=== PATIENT | female | born 2000 | race Caucasian/White ===

== ENCOUNTER 2019-01-31 19:56 | Emergency (ER) | payer SELFPAY ==
--- NOTE | 2019-01-31 20:08 | NUR.NOTE ---
Nursing Note: pt had lower left molar pulled early today. pt states the gave her no pain medication and she has 10/10 pain. pt has taken like the maximum i think of ibuprofen and Tylenol
[2019-01-31 20:10] VITALS: BP 131/74; PULSE 86; RESP 16; TEMP 36.6; O2SAT 97
--- NOTE | 2019-01-31 20:32 | ED.GENADUL_ITS ---
Discharge Plan Disposition Patient Disposition: HOME Discharge Details Chief Complaint: DentalOral Clinical Impression: Pain, dental Primary Care Provider: Shayan Kay ED Provider: Mario Caballero Discharge Instructions Instructions: Toothache (ED) Additional Instructions: Your dental nerve block should last anywhere from 8 to 10 hours. Continue with taking Tylenol 1000 mg and ibuprofen 600 mg every 8 hours for pain. Return should she develop fever or severe swelling/pain. Follow-up with your dentist as scheduled. Referrals: Shayan Kay MD [Primary Care Provider] - 1 week Medical Decision Making This is a nontoxic-appearing 19-year-old female status post dental extraction. No evidence of infection or worrisome features on exam. Right superior alveolar block performed with good success. Patient tolerated procedure well without complications. Discussed continuation of ibuprofen and Tylenol. Return precautions provided. HPI General Date/Time Provider Initiated Documentation: 01/31/19 20:32 . HPI Narrative: Patient is a 19-year-old female with recent extraction of her left molar earlier today presenting with pain from the extraction site. She denies any worsening swelling or any fevers. She has been taking Tylenol and ibuprofen for dental surgeon's instructions. Related Data Allergies Allergy/AdvReac Type Severity Reaction Status Date / Time codeine Allergy Unverified 01/31/19 20:13 Penicillins Allergy Unverified 01/31/19 20:12 General Stated Complaint: DentalOral CHANTE: 4 Review of Systems Review of Systems All systems reviewed & are unremarkable except as noted in HPI and below PFSH Social History Smoking/Tobacco Use Status: Never Alcohol Intake: never Drug use: Never Substance use type: does not use Do you feel safe at home: Yes Do you feel safe in your relationship?: Yes Exam Const General: cooperative, healthy appearing, comfortable and no acute distress Orientation: alert, awake and oriented x3 HENIL Throat image: 1. 2. Other: Status post extraction of premolar with good gingival appearance. No swelling. No evidence of abscess or fluctuation Course Vital Signs Temperature 36.6 C 01/31/19 20:10 Pulse 86 01/31/19 20:10 Respiratory Rate 16 01/31/19 20:10 Blood Pressure 131/74 01/31/19 20:10 Pulse Oximetry 97 01/31/19 20:10 Temperature 36.6 C 01/31/19 20:10 Temperature Source Skin 01/31/19 20:10 Pulse 86 01/31/19 20:10 Respiratory Rate 16 01/31/19 20:10 Respiratory Effort 01/31/19 20:13 Blood Pressure 131/74 01/31/19 20:10 Blood Pressure Position Sitting 01/31/19 20:10 Pulse Oximetry 97 01/31/19 20:10 Oxygen Delivery Method Room Air 01/31/19 20:10 Oxygen Flow Rate 0 01/31/19 20:10 Pain Level 01/31/19 20:10 Procedures Nerve Block Nerve Block 1: Time out performed: No Local Anesthetic: Bupivicaine 0.5% and with Epi Side: right Intraoral Nerve Block: superior alveolar Procedure Successful: Yes Patient Tolerated Procedure: well Complications: none
[2019-01-31 21:01] VITALS: BP 131/74; PULSE 86; RESP 16; TEMP 36.6; O2SAT 97
== END 2019-01-31 21:00 | disposition home or self-care (01) ==
LOC: ER 21:03
PROVIDERS: Emergency Provider Physician Assistant; PCP Internal Medicine
DX: K08.89 Other specified disorders of teeth and supporting structures (principal); G89.18 Other acute postprocedural pain
CPT/HCPCS: 64402

== ENCOUNTER 2019-07-29 17:53 | Emergency (ER) | payer SELFPAY ==
[2019-07-29] VITALS (7 sets, daily range): BP systolic 106–129; BP diastolic 58–88; PULSE 89–107; RESP 11–22; TEMP 37.1; O2SAT 96–100
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
[2019-07-29 18:55] LABS: Abs Immature Grans 0.02 k/cumm (0.0-0.09); Absolute Basophil Count 0.05 k/cumm (0.0-0.2); Basophils % 0.4; Eosinophils % 1.5; HCT 42.5 % (36.0-46.0); HGB 15.1 g/dL (12.0-15.5); Immature Grans % 0.1 %; Lymphocytes % 24.7; Mean Corp. HGB Concentration 35.5 g/dL (32.0-36.0); Mean Corpuscular Hemoglobin 31.3 pg (27.0-33.0); Mean Corpuscular Volume 88.2 fL (80-95); Mean Platelet Volume 8.8 fL (8.0-11.0); Monocytes % 7.5; Neutrophils % 65.8; Platelet Count 407 x1000/uL (130-400); RBC 4.82 m/cumm (4.00-5.20); RBC Distribution Width 12.7 % (11.7-14.6); White Blood Cell Count 13.38 k/cumm (4.4-10.8)
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
[2019-07-29] MEDS: Normal Saline Flush 10 ML SYR IVP (19:04)
[2019-07-29] MEDS: Normal Saline 1,000 ML 1000 ML IV (19:04)
[2019-07-29 19:07] LABS: Lipase 50 U/L (73-393)
[2019-07-29 19:13] LABS: PTT Activated 22.1 sec (21.0-31.4); Prothrombin Time 9.9 sec (9.3-11.0)
[2019-07-29 19:18] LABS: ETHANOL BLOOD < 3.0 mg/dL (<3)
[2019-07-29 19:20] LABS: ALT 18 U/L (14-59); AST 19 U/L (15-37); Albumin 4.4 g/dL (3.4-5.0); Alkaline Phosphatase 72 U/L (46-116); Anion Gap 11.4 mmol/L (3-11); BUN 13 mg/dL (7-18); Bilirubin, Total 0.2 mg/dL (0.2-1.0); CO2 26.6 mmol/L (21.0-32.0); CREATININE 0.73 mg/dL (0.55-1.02); Calcium 8.9 mg/dL (8.5-10.1); Chloride 104 mmol/L (98-107); Glucose 106 mg/dL (74-106); Potassium 4.3 mmol/L (3.5-5.1); Sodium 142 mmol/L (136-145); Total Protein 7.8 g/dL (6.4-8.2)
[2019-07-29 19:33] LABS: Bilirubin Negative (Negative); Blood Negative (Negative); Clarity Clear (Clear); Glucose Negative (Negative); Ketones Negative (Negative); Leukocyte Esterase Negative (Negative); Nitrite Negative (Negative); Specific Gravity 1.025 (1.005-1.025); Urobilinogen 0.2 EU/dL (Up TO 0.2); pH 6.5 (5-8)
[2019-07-29 19:45] LABS: *AMPHETAMINES SCREEN URINE Negative (Negative); *BARBITURATES SCREEN URINE Negative (Negative); *BENZODIAZEPINES SCREEN URINE Negative (Negative); Cannabinoids THC Negative (Negative); Cocaine Screen,Urine Negative (Negative); METHADONE URINE SCREEN Negative (Negative); OPIATES URINE SCREEN Negative (Negative)
[2019-07-29 19:49] LABS: Tricyclic Antidepressants Negative (Negative)
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
[2019-07-29] MEDS: Omnipaque 350 MG/ML 100 ML BTL IJ (20:13)
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
== END 2019-07-29 20:55 | disposition home or self-care (01) ==
PROVIDERS: Emergency Provider Physician Assistant; PCP Internal Medicine
DX: S06.9X1A Unspecified intracranial injury with loss of consciousness of 30 minutes or less, initial encounter (principal); R07.81 Pleurodynia; S80.812A Abrasion, left lower leg, initial encounter; S00.81XA Abrasion of other part of head, initial encounter; R51 Headache; V87.8XXA Person injured in other specified noncollision transport accidents involving motor vehicle (traffic), initial encounter
CPT/HCPCS: 36415; 74177; 80053; 80307; 81025; 83690; 96360; 96361; 99285; 70450; 71260; 72125; 73590; 80320; 81003; 85025; 85610; 85730; J3490

== ENCOUNTER 2020-12-22 22:28 | Emergency (ER) | payer SELFPAY ==
[2020-12-22 22:35] VITALS: BP 138/70; PULSE 97; RESP 17; TEMP 36.9; O2SAT 98
[2020-12-22 23:00] LABS: Bilirubin Negative (Negative); Blood Negative (Negative); Clarity Clear (Clear); Glucose Negative (Negative); Ketones Negative (Negative); Leukocyte Esterase Negative (Negative); Nitrite Negative (Negative); Urobilinogen 0.2 EU/dL (Up TO 0.2); pH 7.5 (5-8)
[2020-12-22] MEDS: Normal Saline 1,000 ML 1000 ML IV (23:05)
[2020-12-22] MEDS: ACETAMINOPHEN 1,000 MG/100 ML BTL 400 MG IVPB (23:08)
--- NOTE | 2020-12-22 23:09 | W.ED.GENAD ---
Discharge Plan Disposition Patient Disposition: [facility] ([facility]) Condition: Serious Discharge Details Clinical Impression: Abdominal pain affecting Primary Care Provider: Shayan Kay ED Provider: Humphrey Berumen Home Meds and New Rx's Prescriptions: No Action No Known Home Meds RF: 0 Discharge Instructions Additional Instructions: Please go directly to the [facility] emergency department. You will be seen and assessed there by the specialist and imaging modalities that we discussed. As you know it is our recommendation for transfer by ambulance, and so if you note that while you are driving to the facility that your pain or symptoms worsen, please pull to the side of the road, call 911, or drive to the closest the nearest hospital/ED. Here is the address for the [facility] emergency department: [address] [place] [address], [facility], [facility], , [place] [address] Referrals: Nahed Zapien DO [OSTEOPATHIC DOCTOR] - Shayan Kay MD [Primary Care Provider] - Medical Decision Making 20-year-old female with no past medical history aside for recent diagnosis of just 1 week ago, whose lastperiod was 4-1/2 weeks ago, presents today for evaluation of abdominal pain. Patient states that starting yesterday she felt a little uncomfortable in her umbilical region, then today she woke up it was a sharp pain just above the bellybutton. She describes it as constant and unremitting. She has not eaten anything today except for 3 cheetos and her vitamin. She admits to a notably diminished appetite which she states has been atypical for her for the last month. She admits to nausea but denies vomiting. No radiation to her back or scapula. She denies urinary complaints, vaginal discharge, or low-set pelvic pain. She denies any history of previous abdominal problems or surgeries. has otherwise been uncomplicated. was planned. No other complaints at this time. No other modifying factors. Physical exam demonstrates tender abdomen in the epigastric region. Positive heel strike test lateralizing to the umbilicus. Mild pain in the right upper as well as the left lower quadrant. No significant CVA tenderness. Limited portable bedside ultrasound demonstrates a contracted gallbladder, as well as an intrauterine with heartbeat present. Location of pain is slightly atypical. Differential includes pancreatitis, biliary colic, atypical location of appendicitis at this current gestation in , less likely heterotopic . I was unable to visualize the patient's appendix, is unable to identify any clear ectopic however my exam is clearly limited. We will rehydrate, treat with Ofirmev, get basic labs, urinalysis, perform pelvic exam, and reach out for ultrasound availability. Unfortunately it is 11 PM and no staff technologist is available at this time. 1 AM Laboratory work-up shows white count of 11.36, no left shift though. Electrolytes stable aside for his minimally low potassium of 3.2. Renal function good. Beta hCG is 94,900, she is certainly a bit increased compared to what I was expecting. Urinalysis negative. No electron beam photo mask technician is available. I performed a repeat limited bedside ultrasound, and I localize to the area of pain which is midline just above the umbilicus. In this region just below the edge of the liver there is some notably atypical tubular structure, diameter and width is 2 cm x 2 cm, length appears to be about 4 to 6 cm until it is lost in what appears to be bowel. I do not see any peristalsis in that area. There is mild fluid and edema surrounding this pocket. No double ring sign/target sign to suggest intussusception. Palpation and ultrasound pressure directly on that spot is the focus of the patient's pain and tenderness. Doppler flow shows that the area appears to be vascularized in the center, however the peripheral circular structure appears to be avascular or at least without significant blood flow. I do not see any clear evidence of an ectopic in it. Uncertain as to what the exact etiology is. I did contact my OB on-call, Dr. Zapien, she to is uncertain upon review of my personal images. Differential continues to include atypical location of appendicitis, less likely intussusception, less likely heterotopic. Consultants recommendations are for transfer for more definitive imaging. I do feel that this is certainly reasonable. We did reach out to [facility] and I discussed the case with acute care surgery Dr. Maradiaga, unfortunately they have no beds available recommend transfer elsewhere. I did contact the [facility] and discussed the case with the on-call ED physician Dr. Madrid, and she agrees with the need for further definitive imaging, recommend transfer to her facility. Patient's pain is improved from 10 out of 10 to a 6 out of 10. She still has tenderness in the abdomen. Did recommend to the patient and her who is on the phone during the patient's entire stay she be transferred via ambulance. That being said the patient has stated that she does not have insurance, and cost is certainly an issue as well. Patient and are requesting to go by POV. I discussed the risks of this, including worsening decline, and worst-case scenario of potential negative outcome and/or . Patient and family understand recommendation for ambulance transfer, however understanding the requests and respecting their wishes the patient will be transferred by POV. We will continue with a transfer packet, and called the ED to let them know of their imminent arrival. The patient's made it unequivocally clear that he knows exactly where the [facility] ED is, and states clearly that he will bring the patient directly there. I have extensively reviewed the treatment plan and discharge instructions with the patient and their family. I have addressed all patient concerns at this time. The patient and family was made aware of what symptoms to monitor for that would warrant a return to the emergency department. Discussed the plan with the patient and family, they demonstrate verbal understanding and agreement with our assessment and plan at this time. The documentation in this chart was dictated using [employer] dictation software. Please excuse any dictation errors. HPI General Date/Time Provider Initiated Documentation: 12/22/20 22:43. HPI Narrative: 20-year-old female with no past medical history aside for recent diagnosis of just 1 week ago, whose lastperiod was 4-1/2 weeks ago, presents today for evaluation of abdominal pain. Patient states that starting yesterday she felt a little uncomfortable in her umbilical region, then today she woke up it was a sharp pain just above the bellybutton. She describes it as constant and unremitting. She has not eaten anything today except for 3 cheetos and her vitamin. She admits to a notably diminished appetite which she states has been atypical for her for the last month. She admits to nausea but denies vomiting. No radiation to her back or scapula. She denies urinary complaints, vaginal discharge, or low-set pelvic pain. She denies any history of previous abdominal problems or surgeries. has otherwise been uncomplicated. was planned. No other complaints at this time. No other modifying factors. Related Data Home Medications Medication Instructions Recorded Confirmed Unknown [No Known Home Meds] 07/29/19 12/23/20 Allergies Allergy/AdvReac Type Severity Reaction Status Date / Time codeine Allergy Unverified 12/22/20 22:44 Penicillins Allergy Unverified 12/22/20 22:44 General Stated Complaint: Abd Prob CHANTE: 3 Review of Systems All systems reviewed & are unremarkable except as noted in HPI and below PFSH Social History Smoking/Tobacco Use Status: Never Smoking risk assessment performed?: Yes Alcohol Intake: never Drug use: Never Substance use type: does not use Do you feel safe at home: Yes Do you feel safe in your relationship?: Yes Exam Narrative Exam Narrative: 1.Const: Well-nourished, Well-developed, appearing stated age 2.Eyes: PERRL, no conjunctival injection, and symmetrical lids. 3.ENT: Atraumatic external nose and ears. Dry MM. Neck: Symmetric, trachea midline, No thyromegaly. 4.CVS: +S1/S2, No murmurs or gallops. Peripheral pulses 2+ and equal in all extremities. Brisk capillary refill in all extremities. 5.RESP: Unlabored respiratory effort. Clear to auscultation bilaterally. No wheezes rales or rhonchi 6.GI: Soft, mildly bloated, notable supraumbilical tenderness, generalized tenderness throughout, slightly worse also in the left lower quadrant and right upper quadrant. Negative Camarena sign. No focal pain or McBurney's point. Pelvic exam was performed with female nurse Agustina at bedside. Pelvic exam demonstrates minimal white discharge in the vaginal vault, no cervical motion tenderness. Mild pain and tenderness on the left bimanual exam, no significant pain on the right bimanual. 7.MSK: Normocephalic/Atraumatic, Extremities w/o deformity or ttp No cyanosis or clubbing, Normal movement of all extremities 8.Skin: Warm, Dry. No rashes or lesions. 9.Neuro: blender / cook II-XII grossly intact. Sensation grossly intact, no focal neurologic deficits. 10.Psych: (AAO) x3. Appropriate mood and affect Course Vital Signs Vital signs: Vital Signs Temperature 36.9 C 12/22/20 22:35 Pulse 97 H 12/22/20 22:35 Respiratory Rate 17 12/22/20 22:35 Blood Pressure 138/70 12/22/20 22:35 Pulse Oximetry 98 12/22/20 22:35 Temperature 36.9 C 12/22/20 22:35 Temperature Source Temporal Artery Scan 12/22/20 22:35 Pulse 97 H 12/22/20 22:35 Respiratory Rate 17 12/22/20 22:35 Respiratory Effort Non-Labored 12/22/20 22:43 Blood Pressure 138/70 12/22/20 22:35 Blood Pressure Position Sitting 12/22/20 22:35 Pulse Oximetry 98 12/22/20 22:35 Oxygen Delivery Method Room Air 12/22/20 22:35 Oxygen Flow Rate 0 12/22/20 22:35 Pain Level 9 12/22/20 23:08 Lab/Test Results Lab/Test Results: Laboratory Tests Range/Units 12/22/20 22:50 Urine Color (Yellow) Yellow Urine Clarity (Clear) Clear Urine pH (5-8) 7.5 Ur Specific [place] (1.005-1.025) 1.020 Urine Protein (Negative) mg/dL Negative Urine Ketones (Negative) mg/dL Negative Urine Blood (Negative) Negative Urine Nitrite (Negative) Negative Urine Bilirubin (Negative) Negative Urine Urobilinogen (Up TO 0.2) EU/dL 0.2 Ur Leukocyte Esterase (Negative) Negative Urine Glucose (Negative) mg/dL Negative
[2020-12-22 23:20] LABS: Abs Immature Grans 0.02 10^3/uL (0.0-0.06); Absolute Basophil Count 0.09 10^3/uL (0.0-0.2); Absolute Eosinophil Count 0.42 10^3/uL (0.0-0.7); Absolute Lymphocyte Count 4.23 10^3/uL (1.2-3.4); Absolute Monocyte Count 0.93 10^3/uL (0.1-0.8); Absolute Neutrophil Count 5.67 10^3/uL (1.2-6.7); Basophils % 0.8; Eosinophils % 3.7; HCT 41.2 % (36.0-46.0); HGB 14.3 g/dL (11.2-15.7); Immature Grans % 0.2; Lactate 1.2 mmol/L (0.6-1.4); Lymphocytes % 37.2; MCH 30.3 pg (27.0-33.0); MCHC 34.7 % (32.0-36.0); MCV 87.3 fL (80-95); Monocytes % 8.2; Neutrophils % 49.9; Nucleated RBC 0 %; Platelet Count 379 10^3/uL (130-400); RBC 4.72 10^6/uL (3.93-5.22); RDW 12.2 % (11.7-14.6); RDW-SD 39.4 fL; WBC 11.36 10^3/uL (4.4-10.8)
[2020-12-22 23:37] LABS: ALT 42 U/L (14-59); AST 19 U/L (15-37); Albumin 3.9 g/dL (3.4-5.0); Alkaline Phosphatase 67 U/L (46-116); Anion Gap 11.3 mmol/L (3-11); BUN 6 mg/dL (7-18); Bilirubin, Total 0.2 mg/dL (0.2-1.0); CO2 24.7 mmol/L (21.0-32.0); CREATININE 0.7 mg/dL (0.55-1.02); Calcium 9.5 mg/dL (8.5-10.1); Chloride 103 mmol/L (98-107); Glucose 99 mg/dL (74-106); Lipase 51 U/L (73-393); Potassium 3.2 mmol/L (3.5-5.1); Sodium 139 mmol/L (136-145)
[2020-12-23 01:42] VITALS: BP 102/60; PULSE 84; RESP 20; O2SAT 100
[2020-12-23 02:49] LABS: COVID-19 PCR Negative (Negative)
== END 2020-12-23 01:55 | disposition short-term general hospital (02) ==
PROVIDERS: Emergency Provider Student in an Organized Health Care Education/Training Program; PCP Internal Medicine
DX: O26.891 Other specified pregnancy related conditions, first trimester (principal); R10.33 Periumbilical pain
CPT/HCPCS: 36415; 80053; 83690; 87491; 87591; 87635; 96361; 96365; 99285; 81003; 83605; 84702; 85025; 87480; 87510; 87660; J0131

== ENCOUNTER 2021-10-14 21:59 | Emergency (ER) | payer SELFPAY ==
[2021-10-14 22:14] VITALS: BP 109/66; PULSE 80; RESP 18; TEMP 36.1; O2SAT 96
--- NOTE | 2021-10-14 22:15 | DI.CT_ITS ---
Exam(s) CT BRAIN NECK CTA EXAM: CT BRAIN NECK CTA CLINICAL HISTORY: severe c7 midline neck pain after twisting. TECHNIQUE: Imaging Protocol: Axial CT angiography was performed with multi-slice acquisition and mu lti-planar and/or 3D reconstructions. CONTRAST MATERIAL: Intravenous: Visipaque 320 contrast volume:85 mL COMPARISON: CT CT THORACIC LUMBAR SPINE REC from 07/29/[address] HEAD CERVICAL SPINE WO from 07/29/2019 FINDINGS: CT Head W/O and W: Ventricles and Extra axial spaces: Normal in size and morphology for the patient's age. Hemorrhage: None. Cerebral parenchyma: Normal. Midline shift: None. Brainstem/Cerebellum: Normal. Calvarium: Normal. Visualized Paranasal sinuses/Mastoids: Clear. Soft Tissues: Unremarkable. Enhancement: Unremarkable. CTA Neck W: Common Carotid: Right: No dissection, occlusion or significant stenosis. Left: No dissection, occlusion or significant stenosis. External Carotid: Right: No occlusion or significant stenosis. Left: No occlusion or significant stenosis. Internal Carotid: Right: No dissection, occlusion or significant stenosis. Left: No dissection, occlusion or significant stenosis. Vertebral Artery: Right: No dissection, occlusion or significant stenosis. Left: No dissection, occlusion or significant stenosis. Lung Apices: Normal. Bones: There is reversal of the normal cervical lordosis. This may be due to muscle spasm or patient positioning. Soft Tissues: Normal. Thyroid gland: Unremarkable. CTA Brain W: Internal Carotid Arteries: Normal. Anterior Cerebral Arteries: Right: No aneurysm, occlusion or significant stenosis. Left: No aneurysm, occlusion or significant stenosis. Middle Cerebral Arteries: Right: No aneurysm, occlusion or significant stenosis. Left: No aneurysm, occlusion or significant stenosis. Posterior Cerebral Arteries: Right: No aneurysm, occlusion or significant stenosis. Left: No aneurysm, occlusion or significant stenosis. Vertebral Arteries: Right: No aneurysm, occlusion or significant stenosis. Left: No aneurysm, occlusion or significant stenosis. Basilar Artery: No aneurysm, occlusion or significant stenosis. IMPRESSION: 1. No large vessel occlusion or significant stenosis on the CT angiography of the head. 2. No acute intracranial process. 3. No occlusion or significant stenosis on the CT angiography of the neck. RADIATION DOSE DELIVERED: 1,804.39mGy.cm Total DLP DATA REPOSITORY: All CT scans at this facility are submitted to the National Radiology Data Registry (NRDR) Dose Index Registry (DIR) with the [employer] (ACR). RADIATION OPTIMIZATION: All CT scans at this facility use at least one of these dose optimization te chniques: automated exposure control; mA and/or kV adjustment per patient size (includes targeted exa ms where dose is matched to clinical indication); or iterative reconstruction.
[2021-10-14] MEDS: Lidocaine 5% Patch 1 PATCH TP (22:41)
--- NOTE | 2021-10-14 23:59 | ED.GENADUL_ITS ---
Discharge Plan Disposition Patient Disposition: HOME Condition: Good Discharge Details Clinical Impression: Neck pain, Cervical strain Primary Care Provider: Shayan Kay ED Provider: Humphrey Berumen Home Meds and New Rx's Prescriptions: No Action No Known Home Meds Discharge Instructions Instructions: Cervical Strain (ED) Additional Instructions: At this time the CT scan shows no significant abnormality after review by the radiologist. However as we discussed together if you have continued pain in that area or you develop any new symptoms such as weakness, numbness or tingling, dizziness or lightheadedness, it is important to be reassessed. Please discuss potential MRI imaging further with your primary care provider. If your symptoms persist and do not improve this may be indicated. Please use the soft collar as needed for support. Continue to take Tylenol and Motrin as needed for pain. You can take 1000 mg of Tylenol every 6 hours, and 800 mg of Motrin every 6 hours. These are the maximum doses. You can take one of the muscle relaxant Flexeril if needed. Please be aware that this will make you somewhat sleepy. I would not recommend taking these or operating heavy machinery, firearms, swimming, or climbing ladders. If you notice any worsening of your symptoms, or any new symptoms such as vomiting, diarrhea, fever, chills, shortness of breath, chest pain, numbness, weakness, or fainting , please return immediately to the emergency department for reevaluation. Please follow up with your primary care provider as soon as possible for reassessment and reevaluation. As always, it was a pleasure participating in your medical care today. Referrals: Shayan Kay MD [Primary Care Provider] - Discharge Data Discharge Date/Time-TO BE ENTERED AT DEPARTURE: 10/15/21 00:49 Medical Decision Making This is a pleasant 21-year-old female with no significant past medical history who presents tonight for neck pain. Patient states that earlier this morning she was lifting her baby while twisting her neck and felt something change quickly in the back of her neck. Since then she has not been able to side bend her neck to the left, or significantly turning. She has notable focal pain on the spine at C7. She denies any fever or chills. She denies any numbness or tingling. She states that the pain radiates from her left posterior neck all the way up towards her jaw. She denies any tearing or ripping sensation. She denies any numbness tingling or weakness. She denies any significant headache. She denies any chest and back pain. She denies any history of anything like this before. She has been rubbing the neck but this has not been changing any of her symptoms. No other complaints at this time. No other modifying factors. Exam demonstrates focal midline tenderness over the C7/T1 spinous process, there is actually slight swelling there, as well as a small bruise which is very atypical. The spinous process felt between C7 and T1 appears to be slightly off center for C7, and somewhat more midline for T1. Patient demonstrates notable inability to side bend to the left, but she can side bend easily to the right. She can rotate her head to the left and right utilizing the upper component of the vertebra, has pain at greater than 45 degrees primarily to the left, lesser to the right. No significant pain with flexion or extension of the head. Patient does not demonstrate any carotid or vertebral artery bruits. Exam is somewhat atypical and unexpected. Differential includes vertebral dislocation which is less likely, ligamentous etiology, or musculoskeletal sprain. Vascular injury is also of concern especially for the vertebral arteries. In this scenario I do feel that appropriate vascular imaging is currently indicated. We will get a CT/CTA of the head and neck to evaluate for etiology here, add a Lidoderm patch, monitor closely and reassess. Clinically the patient does not demonstrate any meningeal signs. She has no fever or chills. Symptoms appear clinically inconsistent with meningitis at this time. She does not use IV or illicit drugs. She did recently have a baby 2 months ago. Of note the patient's anterior and lateral neck musculature demonstrate no significant evidence of spasm. No clinical evidence of torticollis. [address] scan results have returned, and read demonstrates no acute process. I did contact virtual radiology, and did asked to speak with the radiologist and specifically discussed the area around C7/T1, and the small amount of fatty tissue stranding by the spinous process in that area. Virtual radiology felt very specifically that you are imagining things. There is nothing there. [facility] radi[facility] so no evidence of vascular etiology requiring emergent management. I did go and reassess the patient. She still feels similar, but was very reassured that nothing significant emergent was noted on imaging. She continues to have no fever or chills. She denies trauma to the area. At this time with no evidence of emergent etiology, no clinical signs of significant vascular compromise, neurovascular deficit, I do not see an indication for emergent MRI currently. Patient feels comfortable going home, however I did have a long conversation with her that if her symptoms persist in spite of heating pads, muscle relaxants, and NSAIDs, that she may benefit from further assessment by an MRI. I am concerned that there may certainly be a spinous process ligamental strain, but with no evidence of location or other significant abnormality I see no indication at this time for transfer for emergent MRI. Patient stable for discharge. Will recommend close follow-up with her primary care provider Dr. Kay for reassessment and further evaluation to determine potential need for further imaging if symptoms persist. Discussed red flags for which to return. FINDINGS: ANTERIOR CIRCULATION: Right internal carotid artery: Unremarkable. Intracranial segment is patent with no significant stenosis. No aneurysm. Right middle cerebral artery: Unremarkable. No occlusion or significant stenosis. No aneurysm. Right anterior cerebral artery: Unremarkable. No occlusion or significant stenosis. No aneurysm. Left internal carotid artery: Unremarkable. Intracranial segment is patent with no significant stenosis. No aneurysm. Left middle cerebral artery: Unremarkable. No occlusion or significant stenosis. No aneurysm. Left anterior cerebral artery: Unremarkable. No occlusion or significant stenosis. No aneurysm. POSTERIOR CIRCULATION: Right vertebral artery: Unremarkable. No occlusion or significant stenosis. No aneurysm. Left vertebral artery: Unremarkable. No occlusion or significant stenosis. No aneurysm. Basilar artery: Unremarkable. No occlusion or significant stenosis. No aneurysm. Right posterior cerebral artery: Unremarkable. No occlusion or significant stenosis. No aneurysm. Left posterior cerebral artery: Unremarkable. No occlusion or significant stenosis. No aneurysm. Brain: No intracranial mass, acute infarct or recent hemorrhage detected. Cerebral ventricles: No midline shift or hydrocephalus. Bones/joints: No acute fracture. Mastoid air cells: Grossly clear bilaterally. Soft tissues: Unremarkable. Paranasal sinuses: Grossly clear throughout. IMPRESSION: No large vessel stenosis or occlusion detected involving the major branches of the anterior or posterior intracranial circulation. Right common carotid artery: No stenosis. No dissection or occlusion. Right internal carotid artery: No stenosis of the extracranial segment. No dissection or occlusion. Right external carotid artery: No occlusion or stenosis of the origin. Left common carotid artery: No stenosis. No dissection or occlusion. Left internal carotid artery: No stenosis of the extracranial segment. No dissection or occlusion. Left external carotid artery: No occlusion or stenosis of the origin. Right vertebral artery: No stenosis. No dissection or occlusion. Left vertebral artery: No stenosis. No dissection or occlusion. Soft tissues: Normal. No significant soft tissue swelling. Bones/joints: No acute fracture. IMPRESSION: No evidence of 50% or greater stenosis involving the cervical segments of the right or left internal carotid arteries by NASCET criteria. REFERENCES: NASCET CRITERIA. The degree of internal carotid artery stenosis is based on NASCET criteria. Normal is no stenosis. Mild is less than 50% stenosis. Moderate is 50-69% stenosis. Severe is 70% to 99% stenosis. Total occlusion is no detectable patent lumen. Thank you for allowing us to participate in the care of your patient. Dictated and Authenticated by: Antony French MD 10/15/2021 12:06 AM Eastern Time ([place] & [place]) Addendum created by Antony French MD on 10/15/2021 12:29 AM Eastern Time ([place] & [place]): THIS REPORT CONTAINS FINDINGS THAT MAY BE CRITICAL TO PATIENT CARE. The findings were verbally communicated via telephone conference with HUMPHREY BERUMEN at 12:29 AM EDT on 10/15/2021. The findings were acknowledged and understood. HPI General Date/Time Provider Initiated Documentation: 10/14/21 22:20 . HPI Narrative: This is a pleasant 21-year-old female with no significant past medical history who presents tonight for neck pain. Patient states that earlier this morning she was lifting her baby while twisting her neck and felt something change quickly in the back of her neck. Since then she has not been able to side bend her neck to the left, or significantly turning. She has notable focal pain on the spine at C7. She denies any fever or chills. She denies any numbness or tingling. She states that the pain radiates from her left posterior neck all the way up towards her jaw. She denies any tearing or ripping sensation. She denies any numbness tingling or weakness. She denies any significant headache. She denies any chest and back pain. She denies any history of anything like this before. She has been rubbing the neck but this has not been changing any of her symptoms. No other complaints at this time. No other modifying factors. Related Data Home Medications Medication Instructions Recorded Confirmed Unknown [No Known Home Meds] 07/29/19 12/23/20 Allergies Allergy/AdvReac Type Severity Reaction Status Date / Time codeine Allergy Unverified 12/22/20 22:44 Penicillins Allergy Unverified 12/22/20 22:44 General Stated Complaint: Nk/Back Pain CHANTE: 4 Review of Systems All systems reviewed & are unremarkable except as noted in HPI and below PFSH All Active Problems (Updated 10/15/21 @ 00:44 by Humphrey Berumen DO) Abdominal pain affecting (Acute) Neck pain (Acute) Cervical strain (Acute) Social History Smoking/Tobacco Use Status: Never Smoking risk assessment performed?: Yes Alcohol Intake: never Drug use: Never Substance use type: does not use Do you feel safe at home: Yes Do you feel safe in your relationship?: Yes Exam Narrative Exam Narrative: 1.Const: Well-nourished, Well-developed, appearing stated age 2.Eyes: PERRL, no conjunctival injection, and symmetrical lids. 3.ENT: Atraumatic external nose and ears. Moist MM. Neck: Symmetric, trachea midline, No thyromegaly. 4.CVS: +S1/S2, No murmurs or gallops. Peripheral pulses 2+ and equal in all extremities. Brisk capillary refill in all extremities. 5.RESP: Unlabored respiratory effort. Clear to auscultation bilaterally. No wheezes rales or rhonchi 6.GI: Soft, Nontender/Nondistended, No hepatosplenomegaly. No guarding or rebound. 7.MSK: Normocephalic/Atraumatic, Extremities w/o deformity or ttp No cyanosis or clubbing, Normal movement of all extremities No midline tenderness to palpation over the LS spine. Patient does have focal midline tenderness over the C7/T1 spinous process, there is actually slight swelling there, as well as a small bruise which is very atypical. The spinous process felt between C7 and T1 appears to be slightly off center for C7, and somewhat more midline for T1. Patient demonstrates notable inability to side bend to the left, but she can side bend easily to the right. She can rotate her head to the left and right utilizing the upper component of the vertebra, has pain at greater than 45 degrees primarily to the left, lesser to the right. No significant pain with flexion or extension of the head. Patient does not demonstrate any carotid or vertebral artery bruits. Patient has +5 out of 5 strength in the lower extremities in dorsiflexion and plantarflexion, knee flexion and extension, hip flexion and extension. Normal strength for dorsiflexion and plantar flexion of the great toe bilaterally. There is +2 over 2 dorsalis pedis pulses bilaterally. There is normal sensation to the skin with light touch at the foot, knee, and hip. Normal saddle sensation. Good sensation over the deep sural nerve area bilaterally. Rectal exam deferred. Reflexes are +2 over 4 in the patellar reflex bilaterally. +5 out of 5 strength in the medial, ulnar, radial nerve distribution bilaterally in the hands as well as intact light touch sensation to these dermatomes on the hands 8.Skin: Warm, Dry. No rashes or lesions. 9.Neuro: editorial intern II-XII grossly intact. Sensation grossly intact, no focal neurologic deficits. 10.Psych: (AAO) x3. Appropriate mood and affect Course Vital Signs Vital signs: Vital Signs Temperature 36.1 C L 10/14/21 22:14 Pulse 80 10/14/21 22:14 Respiratory Rate 18 10/14/21 22:14 Blood Pressure 109/66 10/14/21 22:14 Pulse Oximetry 96 10/14/21 22:14 Temperature 36.1 C L 10/14/21 22:14 Pulse 80 10/14/21 22:14 Respiratory Rate 18 10/14/21 22:14 Respiratory Effort Non-Labored 10/14/21 22:19 Blood Pressure 109/66 10/14/21 22:14 Blood Pressure Position Supine 10/14/21 22:14 Pulse Oximetry 96 10/14/21 22:14 Oxygen Delivery Method Room Air 10/14/21 22:14 Oxygen Flow Rate 0 10/14/21 22:14 Pain Level 10 10/14/21 22:14
--- NOTE | 2021-10-15 00:07 | DI.VRAD_ITS ---
Addendum created by Antony French MD on 10/15/2021 12:29:23 AM EDT: THIS REPORT CONTAINS FINDINGS THAT MAY BE CRITICAL TO PATIENT CARE. The findings were verbally communicated via telephone conference with ADORE SCHROEDER at 12:29 AM EDT on 10/15/2021. The findings were acknowledged and understood. Initial report created on 10/15/2021 12:06:52 AM EDT: PROCEDURE INFORMATION: Exam: CT Angiography Head With Contrast, Arteriography Exam date and time: 10/14/2021 11:00 PM Age: 21 years old Clinical indication: Other: Severe c7 midline neck pain after twisting TECHNIQUE: Imaging protocol: Computed tomography angiography of the head with contrast. Exam focused on the arteries. 3D rendering (Not supervised by radiologist): MIP and/or 3D reconstructed images were created by the technologist. Contrast material: VISIOPAQUE 320; Contrast volume: 85 ml; Contrast route: INTRAVENOUS (IV); Other contrast: severe c7 midline neck pain after twisting; COMPARISON: CT HEAD CERVICAL SPINE WO 07/29/2019 7:41 PM FINDINGS: ANTERIOR CIRCULATION: Right internal carotid artery: Unremarkable. Intracranial segment is patent with no significant stenosis. No aneurysm. Right middle cerebral artery: Unremarkable. No occlusion or significant stenosis. No aneurysm. Right anterior cerebral artery: Unremarkable. No occlusion or significant stenosis. No aneurysm. Left internal carotid artery: Unremarkable. Intracranial segment is patent with no significant stenosis. No aneurysm. Left middle cerebral artery: Unremarkable. No occlusion or significant stenosis. No aneurysm. Left anterior cerebral artery: Unremarkable. No occlusion or significant stenosis. No aneurysm. POSTERIOR CIRCULATION: Right vertebral artery: Unremarkable. No occlusion or significant stenosis. No aneurysm. Left vertebral artery: Unremarkable. No occlusion or significant stenosis. No aneurysm. Basilar artery: Unremarkable. No occlusion or significant stenosis. No aneurysm. Right posterior cerebral artery: Unremarkable. No occlusion or significant stenosis. No aneurysm. Left posterior cerebral artery: Unremarkable. No occlusion or significant stenosis. No aneurysm. Brain: No intracranial mass, acute infarct or recent hemorrhage detected. Cerebral ventricles: No midline shift or hydrocephalus. Bones/joints: No acute fracture. Mastoid air cells: Grossly clear bilaterally. Soft tissues: Unremarkable. Paranasal sinuses: Grossly clear throughout. IMPRESSION: No large vessel stenosis or occlusion detected involving the major branches of the anterior or posterior intracranial circulation. PROCEDURE INFORMATION: Exam: CT Angiography Neck With Contrast Exam date and time: 10/14/2021 11:00 PM Age: 21 years old Clinical indication: Other: Severe c7 midline neck pain after twisting TECHNIQUE: Imaging protocol: Computed tomography angiography of the neck with contrast. 3D rendering (Not supervised by radiologist): MIP and/or 3D reconstructed images were created by the technologist. Radiation optimization: All CT scans at this facility use at least one of these dose optimization techniques: automated exposure control; mA and/or kV adjustment per patient size (includes targeted exams where dose is matched to clinical indication); or iterative reconstruction. Contrast material: VISIOPAQUE 320; Contrast volume: 85 ml; Contrast route: INTRAVENOUS (IV); Other contrast: severe c7 midline neck pain after twisting; COMPARISON: CT HEAD CERVICAL SPINE WO 07/29/2019 7:41 PM FINDINGS: Right common carotid artery: No stenosis. No dissection or occlusion. Right internal carotid artery: No stenosis of the extracranial segment. No dissection or occlusion. Right external carotid artery: No occlusion or stenosis of the origin. Left common carotid artery: No stenosis. No dissection or occlusion. Left internal carotid artery: No stenosis of the extracranial segment. No dissection or occlusion. Left external carotid artery: No occlusion or stenosis of the origin. Right vertebral artery: No stenosis. No dissection or occlusion. Left vertebral artery: No stenosis. No dissection or occlusion. Soft tissues: Normal. No significant soft tissue swelling. Bones/joints: No acute fracture. IMPRESSION: No evidence of 50% or greater stenosis involving the cervical segments of the right or left internal carotid arteries by NASCET criteria. REFERENCES: NASCET CRITERIA. The degree of internal carotid artery stenosis is based on NASCET criteria. Normal is no stenosis. Mild is less than 50% stenosis. Moderate is 50-69% stenosis. Severe is 70% to 99% stenosis. Total occlusion is no detectable patent lumen. Dictated and Authenticated by: Antony French MD. Ordering:KUMAR Yin MD
[2021-10-15] MEDS: Ibuprofen 800 MG TAB PO (00:54)
[2021-10-15] MEDS: Acetaminophen 500 MG TAB 1000 MG PO (00:54)
[2021-10-15] MEDS: Cyclobenzaprine 10 MG TAB, 3 TABS/BTL PO (00:54)
--- NOTE | 2021-10-15 10:09 | NUR.NOTE ---
Nursing Note: Patient presented this morning stating she needed an MRI and that she could not get in to her PCP for weeks. I spoke with Dr Christian Knight, he reviewed the chart. At his direction, I told the patient that she could be re-evaluated in the ED again, but there was not guarantee that the MRI would be done today. She could wait to get in to her PCP or we could ask our ED Medical Psychotherapist to assist her in trying to get an earlier appt with her PCP than weeks. The patient elected to have the patient care director assist her with a sooner appt. I gave the information to Cat Dawn who will assist the patient. Gosia Grant
--- NOTE | 2021-10-15 10:27 | PDOC.ERCMACT ---
- If Service Date Differs Date of service: 10/15/21 Time of Service: 10:27 Care Management Activity Note Nuria is seen in the ED for neck pain and cervical strain. She presents again in the ED the following morning stating she is unable to get an appointment with her PCP for several weeks. BRADEN is asked by the ED to contact her PCP's office, [facility] ([facility] to assist Nuria in obtaining a follow up appointment as soon as possible. BRADEN speaks with Su at [facility]. Su is outreaching directly to Nuria to offer an appointment this week.
== END 2021-10-15 00:49 | disposition home or self-care (01) ==
PROVIDERS: Emergency Provider Student in an Organized Health Care Education/Training Program; PCP Internal Medicine
DX: S16.1XXA Strain of muscle, fascia and tendon at neck level, initial encounter (principal); M54.2 Cervicalgia; X50.1XXA Overexertion from prolonged static or awkward postures, initial encounter
CPT/HCPCS: 70496; 70498; 99285; 99284

== ENCOUNTER 2022-05-24 11:40 | Emergency (ER) | payer SELFPAY ==
[2022-05-24 11:49] VITALS: BP 113/64; PULSE 114; RESP 16; TEMP 37.8; O2SAT 99
[2022-05-24 12:01] VITALS: BP 110/71; PULSE 111; RESP 16; O2SAT 98
[2022-05-24] MEDS: Normal Saline 1,000 ML 1000 ML IV ×2 (12:30→13:22)
[2022-05-24 12:40] VITALS: TEMP 37.8
[2022-05-24] MEDS: Ketorolac 15 MG/ML VIAL IVP (12:40)
[2022-05-24 13:26] VITALS: TEMP 37.6
[2022-05-24] MEDS: ACETAMINOPHEN 1,000 MG/100 ML BTL 400 MG IVPB (13:26)
[2022-05-24 13:27] VITALS: PULSE 98; TEMP 37.6; O2SAT 95
[2022-05-24 14:08] VITALS: BP 109/70; PULSE 106; RESP 16; TEMP 37.5; O2SAT 99
--- NOTE | 2022-05-24 14:08 | W.ED.GENAD ---
Discharge Plan Disposition Patient Disposition: Home Condition: Improving Discharge Details Clinical Impression: Influenza A Primary Care Provider: Shayan Kay ED Provider: Daniel Maxwell Home Meds and New Rx's Prescriptions: No Action No Known Home Meds Discharge Instructions Instructions: Influenza (ED) Additional Instructions: Continue to stay well-hydrated and get plenty of rest during viral illness. You may continue to take ojlu-wyy-uqihfex acetaminophen or Tylenol as directed. Please be cautious with use of combination medications such as DayQuil/NyQuil or other vzef-dcj-hnxdpyi's as they may contain acetaminophen. Please make sure that you do not take more than 4000 mg of acetaminophen in a 24-hour period. If you develop any new or significant worsening of symptoms please return the emergency department for reassessment. Otherwise follow-up with your primary care provider if not improving in the next week. Stand Alone Forms: Work Release Referrals: Shayan Kay MD [Primary Care Provider] - 1 week (As needed for reassessment) Discharge Data Discharge Date/Time-TO BE ENTERED AT DEPARTURE: 05/24/22 14:17 Medical Decision Making Patient presenting to the emergency department for chief complaint of cold and flulike symptoms. Patient states that he started on Wednesday and has continued to feel ill. Has taken feil-avm-osbdatt medications which somewhat help. Physical exam shows an ill-appearing but nontoxic female patient with unremarkable HEENT, and respiratory exam and only minor tachycardia noted. Patient is febrile but not hypoxic or hypotensive. We will plan on checking for flu and COVID as these are my high suspicion. Pending results we will give patient Toradol and normal saline. Review of results show that patient is flu a positive. Patient remains still slightly tachycardic so we will give additional liter of fluids and still having body aches will give additional acetaminophen. Patient reassessed and had improvement of fever and tachycardia along with body aches. I do feel that patient is stable for discharge. Given that patient has had symptoms greater than 48 hours I do not feel that antiviral therapy will be of benefit to patient so patient will continue with conservative management and monitoring symptoms. Did discuss with patient return and follow-up precautions. After discussion of diagnosis and plan of care patient has no further needs, questions, or concerns and states clear understanding to return to the emergency department for any worsening symptoms. This documentation was generated using Dragon dictation system, please disregard any oddities of phrase or misspellings. Lab Data Lab results reviewed: Yes I reviewed the patient's lab results. HPI General Mode of arrival: ambulatory. Date/Time Provider Initiated Documentation: 05/24/22 11:42. Limitations to Documentation: no limitations. Information obtained by: patient and RN notes reviewed. History of Present Illness 22 year old F presents to the emergency department with the chief complaint of Fever chills cough body aches runny nose, described as moderate, with intensity rated at 8. Quality is described as aching (Generalized body aches), Patient started experiencing this day(s) (3) and it has been constant. No relieving factors improve symptom(s), No exacerbating factors reported . Patient notes no other symptoms.. Patient did receive the following treatments prior to arrival, other (NyQuil yesterday evening) Related Data Home Medications Medication Instructions Recorded Confirmed Unknown [No Known Home Meds] 07/29/19 05/24/22 Allergies Allergy/AdvReac Type Severity Reaction Status Date / Time codeine Allergy Unverified 05/24/22 11:58 Penicillins Allergy Unverified 05/24/22 11:58 General Stated Complaint: RespSymp CHANTE: 4 Review of Systems Constitutional Constitutional: Reports body ache(s), Reports chills, Reports fever(s), Reports headache(s) and Reports malaise Eyes Eyes: Denies eye discharge ENT Ears, Nose, Mouth, and Throat: Reports as per HPI, Denies ear discharge, Denies otalgia, Reports headache(s), Reports nasal congestion, Reports nasal discharge, Denies neck pain, Reports sore throat and Denies throat swelling Cardiovascular Cardiovascular: Denies chest pain and Denies dyspnea Respiratory Respiratory: Reports cough and Denies dyspnea Musculoskeletal Musculoskeletal: Denies joint swelling and Denies neck pain Integumentary/Breasts Skin/Breast: Denies rash Neurologic Neurologic: Reports headache(s) Allergic/Immunologic Allergic/Immunologic: Denies throat swelling PFSH All Active Problems (Updated 05/24/22 @ 14:14 by Daniel Maxwell NP) Abdominal pain affecting (Acute) Influenza A (Acute) Social History Smoking/Tobacco Use Status: Never Smoking risk assessment performed?: Yes Alcohol Intake: never Drug use: Never Substance use type: does not use Do you feel safe at home: Yes Do you feel safe in your relationship?: Yes Exam Const General: cooperative, comfortable, no acute distress and ill appearing acutely Orientation: alert and awake [facility] Head: normal to inspection, normocephalic and atraumatic Ears: hearing grossly normal bilaterally and TM's normal bilaterally General nose exam: external nose normal Face and sinus: no erythema Mouth: oral mucosae normal, no drooling, no muffled voice and no trismus Throat: posterior oropharynx normal Neck Neck: normal visual inspection, full ROM, no lymphadenopathy, no meningeal signs, trachea midline and supple Resp Effort & Inspection: normal respiratory effort, able to speak in complete sentences and cough Quality of cough: dry Auscultation: clear to auscultation bilaterally Cardio Rate: tachycardic Rhythm: regular rhythm Heart Sounds: S1 normal, S2 normal, normal S1 and S2, no click, no gallops, no murmurs and no rubs Skin General skin exam: no rashes or lesions noted and dry skin (warm) Neuro General: patient alert, patient awake, patient oriented x3, gait normal and moves all extremities Cognition: normal cognition Speech: speech normal Course Vital Signs Vital signs: Vital Signs Temperature 37.8 C H 05/24/22 11:49 Pulse 114 H 05/24/22 11:49 Respiratory Rate 16 05/24/22 11:49 Blood Pressure 113/64 05/24/22 11:49 Pulse Oximetry 99 05/24/22 11:49 Temperature 37.6 C H 05/24/22 13:27 Temperature Source Skin 05/24/22 13:27 Pulse 98 H 05/24/22 13:27 Respiratory Rate 16 05/24/22 12:01 Respiratory Depth Normal 05/24/22 12:00 Blood Pressure 110/71 05/24/22 12:01 Blood Pressure Position Sitting 05/24/22 11:49 Pulse Oximetry 95 05/24/22 13:27 Oxygen Delivery Method Room Air 05/24/22 13:27 Oxygen Flow Rate 0 05/24/22 13:27 Pain Level 9 05/24/22 13:27 Comment helps with fever but no other symptoms 05/24/22 11:49
== END 2022-05-24 14:17 | disposition home or self-care (01) ==
PROVIDERS: Emergency Provider Nurse Practitioner Family; PCP Internal Medicine
DX: J10.1 Influenza due to other identified influenza virus with other respiratory manifestations (principal); R00.0 Tachycardia, unspecified
CPT/HCPCS: 96361; 96374; 99284; 99283; J0131; J1885

== ENCOUNTER 2022-05-25 21:24 | Emergency (ER) | payer SELFPAY ==
[2022-05-25 21:28] VITALS: BP 129/89; PULSE 100; RESP 16; TEMP 36.8; O2SAT 96
--- NOTE | 2022-05-25 21:43 | W.ED.GENAD ---
Discharge Plan Disposition Patient Disposition: Home Condition: Good Discharge Details Chief Complaint: GenMedical Clinical Impression: Influenza A Primary Care Provider: Shayan Kay ED Provider: Antoinette Torres Home Meds and New Rx's Prescriptions: No Action No Known Home Meds Discharge Instructions Instructions: H1N1 Influenza (ED) Additional Instructions: Please continue to encourage hydration. Tylenol and ibuprofen as needed for discomfort or fevers. Please wash your hands frequently to prevent spread to others. Please try to get some rest. If you develop shortness of breath, difficulty breathing, inability stay hydrated or other new/worsening symptom please seek care urgently once again. Otherwise, please follow-up with primary care for reevaluation in 2 weeks. Referrals: Shayan Kay MD [Primary Care Provider] - Medical Decision Making Patient is a 22-year-old female presenting today with concern for worsening flulike symptoms. She was seen here yesterday diagnosed with influenza. She reports that she has not used any eftv-uep-rnzzoih medications since early this morning. Primary concern is diffuse body aches and fatigue. States that her significant other is not allowing her to rest the way that she feels that she should. States that this is also the reason she has not been taking any analgesics or antipyretics. Has been trying to hydrate. Denies any shortness of breath or chest pain. Has not noted any rash. No GI involvement. On exam, patient appears nontoxic. She does appear anxious. Lungs are clear, normal HEENT exam aside from chronic deformity to right ear. Patient appears well-hydrated. Will give Tylenol and ibuprofen to help with body aches. We discussed supportive care. Primary concern is that she needs to get more rest and does not feel that her significant other is going to allow her to do this. I did offer supportive services including umbrella to get her someplace where she can be safe. She reports that she is in fact safe and has not concern for safety, has of the places that she can go, but states that it is more that they were bickering and not able to rest. We again reiterated supportive care measurements. We discussed when to seek care emergently once again. All of her questions and concerns were addressed and she is in agreement this plan. HPI General Date/Time Provider Initiated Documentation: 05/25/22 21:26. Limitations to Documentation: no limitations. Information obtained by: patient, RN notes reviewed and old records reviewed. History of Present Illness 22 year old F presents to the emergency department with the chief complaint of body aches, flu symptoms, described as severe, with intensity rated at 10. Quality is described as aching (diffuse body aches), Patient started experiencing this day(s) and it has been constant. No relieving factors improve symptom(s), No exacerbating factors reported . Patient notes cough, fever/chills, loss of appetite and malaise; denies chest pain, nausea/vomiting, rash and shortness of breath. Patient did receive the following treatments prior to arrival, none Related Data Home Medications Medication Instructions Recorded Confirmed Unknown [No Known Home Meds] 07/29/19 05/24/22 Allergies Allergy/AdvReac Type Severity Reaction Status Date / Time codeine Allergy Unverified 05/24/22 11:58 Penicillins Allergy Unverified 05/24/22 11:58 General Stated Complaint: GenMedical CHANTE: 4 Review of Systems Constitutional Constitutional: Reports as per HPI and Denies headache(s) ENT Ears, Nose, Mouth, and Throat: Reports as per HPI and Denies headache(s) Cardiovascular Cardiovascular: Reports as per HPI, Denies chest pain and Denies dyspnea Respiratory Respiratory: Reports as per HPI and Denies dyspnea Gastrointestinal Gastrointestinal: Reports as per HPI, Denies abdominal pain, Denies change in bowel habits, Denies nausea and Denies vomiting Integumentary/Breasts Skin/Breast: Reports as per HPI and Denies rash Neurologic Neurologic: Reports as per HPI and Denies headache(s) PFSH All Active Problems (Updated 05/25/22 @ 21:44 by ОЛЬГА Velasquez) Abdominal pain affecting (Acute) Influenza A (Acute) Social History Smoking/Tobacco Use Status: Never Smoking risk assessment performed?: Yes Alcohol Intake: never Drug use: Never Substance use type: does not use Do you feel safe at home: Yes Do you feel safe in your relationship?: Yes Exam Const General: cooperative, healthy appearing, comfortable, no acute distress, well developed, well groomed and anxious Nutritional Appearance: average body habitus and well nourished Orientation: alert and awake [facility] Head: normal to inspection, normocephalic and atraumatic Ears: hearing grossly normal bilaterally, external ears normal and TM's normal bilaterally General nose exam: external nose normal and nares normal Face and sinus: normal facial exam, sinuses nontender and face symmetric Mouth: oral mucosae normal, lip normal, tongue normal, oropharynx normal and moist mucous membranes Teeth and gingiva: dentition normal Throat: posterior oropharynx normal, tonsils normal and uvula midline Eyes General: appearance normal, both eyes and all related structures Neck Neck: normal visual inspection, full ROM, no lymphadenopathy and no meningeal signs Resp Effort & Inspection: normal respiratory effort, able to speak in complete sentences and no respiratory distress Auscultation: clear to auscultation bilaterally, no rales, no rhonchi and no wheezes Cardio Rate: regular rate Rhythm: regular rhythm Heart Sounds: S1 normal and S2 normal Skin General skin exam: no rashes or lesions noted Neuro General: patient alert and patient awake Cognition: normal cognition Speech: speech normal Gait: normal gait Psych Appearance: grossly normal and well kempt Mental Status: mental status grossly normal Speech and Movement: speech and movement normal Course Vital Signs Vital signs: Vital Signs Temperature 36.8 C 05/25/22 21:28 Pulse 100 H 05/25/22 21:28 Respiratory Rate 16 05/25/22 21:28 Blood Pressure 129/89 05/25/22 21:28 Pulse Oximetry 96 05/25/22 21:28 Temperature 36.8 C 05/25/22 21:28 Pulse 100 H 05/25/22 21:28 Respiratory Rate 16 05/25/22 21:28 Respiratory Effort 05/25/22 21:35 Respiratory Depth Normal 05/25/22 21:35 Respiratory Pattern Normal 05/25/22 21:35 Blood Pressure 129/89 05/25/22 21:28 Pulse Oximetry 96 05/25/22 21:28 Oxygen Delivery Method Room Air 05/25/22 21:28 Oxygen Flow Rate 0 05/25/22 21:28 Pain Level 10 05/25/22 21:28
[2022-05-25] MEDS: Acetaminophen 325 MG TAB 650 MG PO (21:45)
[2022-05-25] MEDS: Ibuprofen 600 MG TAB PO (21:45)
== END 2022-05-25 21:49 | disposition home or self-care (01) ==
PROVIDERS: Emergency Provider Physician Assistant; PCP Internal Medicine
DX: J10.1 Influenza due to other identified influenza virus with other respiratory manifestations (principal)
CPT/HCPCS: 99282

== ENCOUNTER 2023-08-10 01:00 | Outpatient (REF) | payer SELFPAY ==
--- NOTE | 2023-08-10 15:15 | PAPFT_PTH ---
PATIENT: Nuria Vazquez LOC: [facility] U#:[id number] AGE/SX: 23/F ROOM: RE08/10/[address]: Isabella Holly : 2000 BED: DIS: 08/10/2023 SPEC #: [id number] RECD: 08/11/23 12:49 STATUS: SAM REQ #: [id number] LESLIE: 08/10/23 15:[address]: Isabella Holly DEPT: [facility] Cytology RECD BY: Justina Alcazar Tissues: 1 - CX/ENDOCX FOR PAP SMEARS Procedures: PAP THIN PREP/UVM Screening Comments: [id number] (CHLAMYDIA/GC)
[2023-08-12 15:02] LABS: Chlamydia Result Negative (Negative); GC Result Negative (Negative)
== END 2023-08-10 01:01 | disposition home or self-care (01) ==
LOC: NCHCN 01:00
PROVIDERS: PCP Nurse Practitioner Family; Visit Provider Nurse Practitioner Family
DX: Z01.419 Encounter for gynecological examination (general) (routine) without abnormal findings (principal)
CPT/HCPCS: 87491; 87591; 88142

== ENCOUNTER 2023-08-29 22:02 | Emergency (ER) | payer SELFPAY ==
[2023-08-29 22:07] VITALS: BP 135/91; PULSE 79; RESP 16; TEMP 37; O2SAT 98
[2023-08-29 22:16] VITALS: BP 135/91; PULSE 79; RESP 16; TEMP 37; O2SAT 98
--- NOTE | 2023-08-29 22:25 | ED.GENADUL_ITS ---
Discharge Plan Disposition Patient Disposition: Home Condition: Stable Discharge Details Chief Complaint: EarProblem Clinical Impression: Otitis externa Primary Care Provider: Isabella Holly ED Provider: Kevin Strauss Home Meds and New Rx's Prescriptions: No Action No Known Home Meds Discharge Instructions Instructions: Otitis Externa (ED) Additional Instructions: Please follow-up with [facility] audiology within the next week. Please return to the emerged part for any worsening symptoms HPI General Date/Time Provider Initiated Documentation: 08/29/23 22:14 . 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 Feels some pressure extending down into side of jaw and neck. Follows closely with audiology at [facility]. No recent submersion in water. Related Data Home Medications Medication Instructions Recorded Confirmed Unknown [No Known Home Meds] 07/29/19 08/29/23 Allergies Allergy/AdvReac Type Severity Reaction Status Date / Time codeine Allergy Nausea Unverified 08/29/23 22:10 Penicillins Allergy Nausea Unverified 08/29/23 22:10 General Stated Complaint: EarProblem CHANTE: 4 Review of Systems Narrative: Review of Systems Constitutional: negative Eyes: negative ENT: Ear pain Cardiovascular: negative Respiratory: negative Gastrointestinal: negative : negative Musculoskeletal: negative Skin: negative Neurologic: negative Psych: negative Exam Narrative Exam Narrative: Physical Examination General: alert, awake, cooperative, resting comfortably, no acute distress HEENT: normocephalic, atraumatic; PERRL, EOM intact, conjunctiva normal; no nasal discharge; moist mucous membranes; left ear: TM clear, no effusion no induration no bulging, patient does have discomfort in external auditory canal with mild induration and erythema, no appreciable external exudate or purulence, no mastoid tenderness; congenital dysgenesis of right ear Neck: supple, trachea midline; full ROM Chest: normal to inspection Respiratory: normal respiratory effort, speaking in full sentences Skin: no lesions, rashes or trauma appreciated Neuro: AAOx3, normal speech, moving all extremities Psych: Appropriate mood and affect Course Vital Signs Vital signs: Vital Signs Temperature 37.0 C 08/29/23 22:07 Pulse 79 08/29/23 22:07 Respiratory Rate 16 08/29/23 22:07 Blood Pressure 135/91 H 08/29/23 22:07 Pulse Oximetry 98 08/29/23 22:07 Temperature 37.0 C 08/29/23 22:16 Temperature Source Skin 08/29/23 22:16 Pulse 79 08/29/23 22:16 Respiratory Rate 16 08/29/23 22:16 Respiratory Effort Normal, Non-Labored 08/29/23 22:10 Blood Pressure 135/91 H 08/29/23 22:16 Blood Pressure Position Sitting 08/29/23 22:16 Pulse Oximetry 98 08/29/23 22:16 Oxygen Delivery Method Room Air 08/29/23 22:16 Oxygen Flow Rate 0 08/29/23 22:07 Pain Level 9 08/29/23 22:16 Medical Decision Making 23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 No respiratory distress. TM clear left without effusion or erythema, external auditory canal on left mildly indurated with erythema no exudate or purulence no evan, negative mastoid tenderness, supple neck, no signs of deep space infection of head or neck; high clinical suspicion for otitis externa. Will start on ofloxacin. Patient follows closely with audiology at [facility]. Quality:SDOH Health Related Social Needs: No Data to Display [facility] All Active Problems (Updated 08/29/23 @ 22:30 by Kevin Strauss MD) Otitis externa (Acute) Abdominal pain affecting (Acute) Medical History Short stature Congenital anomaly of ear Financial insecurity Anxiety and depression Panic disorder Acne vulgaris Hearing loss, left Social History Smoking/Tobacco Use Status: Current every day Tobacco Type: e-cigarettes Smoking risk assessment performed?: Yes Alcohol Intake: current Alcohol Intake frequency: a few times a month Alcohol type: beer and hard liquor Drug use: Never Substance use type: does not use Housing: apartment Do you feel safe at home: Yes Do you feel safe in your relationship?: Yes
== END 2023-08-29 23:00 | disposition home or self-care (01) ==
PROVIDERS: Emergency Provider Emergency Medicine; PCP Nurse Practitioner Family
DX: H60.92 Unspecified otitis externa, left ear (principal); Q17.9 Congenital malformation of ear, unspecified; F17.290 Nicotine dependence, other tobacco product, uncomplicated
CPT/HCPCS: 99283

== ENCOUNTER 2023-09-22 15:52 | Outpatient (REF) | payer SELFPAY ==
[2023-09-22 22:09] LABS: HCT 42.3 % (36.0-46.0); HGB 14.4 g/dL (11.2-15.7); MCH 29.8 pg (27.0-33.0); MCV 88 fL (80-95); MPV 9.8 fL (8.0-11.0); Platelet Count 422 10^3/uL (130-400); RBC 4.83 10^6/uL (3.93-5.22); RDW 13.5 % (11.7-14.6); RDW-SD 43.5 fL; WBC 9.05 10^3/uL (4.4-10.8)
[2023-09-22 22:46] LABS: ALT 22 U/L (14-59); AST 13 U/L (15-37); Albumin 4.4 g/dL (3.4-5.0); Alkaline Phosphatase 95 U/L (46-116); Anion Gap 11.8 mmol/L (3-11); BUN 13 mg/dL (7-18); Bilirubin, Total 0.5 mg/dL (0.2-1.0); CO2 25.2 mmol/L (21.0-32.0); CREATININE 0.8 mg/dL (0.55-1.02); Calcium 9.6 mg/dL (8.5-10.1); Chloride 103 mmol/L (98-107); Estimated GFR 105.45 (mL/min/1.73m2); Ferritin 28 ng/mL (8-252); Glucose 85 mg/dL (74-106); Potassium 3.8 mmol/L (3.5-5.1); Sodium 140 mmol/L (136-145); TSH (W/Ref FT4) 1.11 uIU/mL (0.36-3.74); Total Protein 8.2 g/dL (6.4-8.2)
[2023-09-22 23:08] LABS: Iron 58 ug/dL (50-170); Total Iron Binding Capacity 372 ug/dL (250-450); Transferrin Sat 16 % (15-50)
== END 2023-09-22 15:53 | disposition home or self-care (01) ==
LOC: NCHCN 15:52
PROVIDERS: PCP Nurse Practitioner Family; Visit Provider Nurse Practitioner Family
DX: R00.2 Palpitations (principal)
CPT/HCPCS: 80053; 85027; 82728; 83540; 83550; 84443

== ENCOUNTER 2023-09-23 12:57 | Outpatient (RCR) | payer SELFPAY ==
--- NOTE | 2023-09-23 13:15 | HOLTER_ITS ---
APPROVED REPORT Conclusion This is a 48-hour Holter monitor Rhythm throughout was sinus with an average heart rate of 83. Minimum was 56, maximum 142 There were no ventricular dysrhythmias There were a total of 19 isolated atrial premature beats There was no atrial fibrillation, no high-grade AV block, no pauses greater than 3 seconds No patient symptoms were reported
== END 2023-10-22 23:59 | disposition home or self-care (01) ==
LOC: CARDOPNVT 12:57
PROVIDERS: PCP Nurse Practitioner Family; Visit Provider Internal Medicine Cardiovascular Disease
DX: R00.2 Palpitations (principal); I49.1 Atrial premature depolarization
CPT/HCPCS: 93225; 93226

== ENCOUNTER 2023-10-17 16:31 | Emergency (ER) | payer SELFPAY ==
[2023-10-17 16:33] VITALS: BP 142/74; PULSE 87; RESP 16; TEMP 36.7; O2SAT 99
[2023-10-17 17:35] LABS: COVID-19 PCR Negative (Negative); Influenza A PCR Negative (Negative); Influenza B PCR Negative (Negative); RSV PCR Negative (Negative)
[2023-10-17 17:37] VITALS: RESP 16
[2023-10-17 17:37] LABS: Source Nasopharynx
--- NOTE | 2023-10-17 17:48 | W.ED.GENAD ---
Discharge Plan Disposition Patient Disposition: Home Condition: Improving Discharge Details Chief Complaint: GenMedical Clinical Impression: Viral illness Primary Care Provider: Isabella Holly ED Provider: Kevin Strauss Home Meds and New Rx's Prescriptions: No Action No Known Home Meds Discharge Instructions Instructions: Viral Syndrome (ED) Stand Alone Forms: Work Release HPI General Date/Time Provider Initiated Documentation: 10/17/23 16:58. HPI Narrative: 23-year-old female presents with headache body ache fatigue nausea vomiting cough over the last couple of days, sick contacts at home with similar symptoms. Related Data Home Medications Medication Instructions Recorded Confirmed Unknown [No Known Home Meds] 07/29/19 10/17/23 Allergies Allergy/AdvReac Type Severity Reaction Status Date / Time codeine Allergy Nausea Unverified 10/17/23 17:38 Penicillins Allergy Nausea Unverified 10/17/23 17:38 General Stated Complaint: GenMedical CHANTE: 3 Review of Systems Narrative: Review of Systems Constitutional: Body aches Eyes: negative ENT: negative Cardiovascular: negative Respiratory: Cough Gastrointestinal: negative : negative Musculoskeletal: negative Skin: negative Neurologic: negative Psych: negative Exam Narrative Exam Narrative: Physical Examination General: alert, awake, cooperative, resting comfortably, no acute distress HEENT: normocephalic, atraumatic; PERRL, EOM intact, conjunctiva normal; no nasal discharge; moist mucous membranes, oral and pharyngeal mucosa normal, tolerating secretions Neck: supple, trachea midline; full ROM Chest: normal to inspection Respiratory: normal respiratory effort, speaking in full sentences, clear to auscultation, no wheezing, rales or rhonchi Cardiac: regular rate, regular rhythm, S1S2 intact, no murmurs rubs or gallops GI: abdomen soft, non-tender, non-distended; no palpable mass or hepatosplenomegaly Skin: no lesions, rashes or trauma appreciated Neuro: AAOx3, normal speech, moving all extremities Extremities: No peripheral edema Psych: Appropriate mood and affect Course Vital Signs Vital signs: Vital Signs Temperature 36.7 C 10/17/23 16:33 Pulse 87 10/17/23 16:33 Respiratory Rate 16 10/17/23 16:33 Blood Pressure 142/74 H 10/17/23 16:33 Pulse Oximetry 99 10/17/23 16:33 Temperature 36.7 C 10/17/23 16:33 Pulse 87 10/17/23 16:33 Respiratory Rate 16 10/17/23 17:37 Respiratory Effort Short of Breath 10/17/23 17:37 Respiratory Depth Normal 10/17/23 17:37 Respiratory Pattern Normal 10/17/23 17:37 Blood Pressure 142/74 H 10/17/23 16:33 Blood Pressure Position Sitting 10/17/23 16:33 Pulse Oximetry 99 10/17/23 16:33 Oxygen Delivery Method Room Air 10/17/23 16:33 Oxygen Flow Rate 0 10/17/23 16:33 Lab/Test Results Lab/Test Results: Laboratory Tests Range/Units 10/17/23 16:47 COVID-19 Source Nasopharynx SARS-CoV-2 (PCR) (Negative) Negative Influenza Type A (PCR) (Negative) Negative Influenza Type B (PCR) (Negative) Negative RSV (PCR) (Negative) Negative Medical Decision Making 23-year-old female presents with nausea vomiting diarrhea body aches fatigue fever decreased taste and smell as well as cough over the last couple of days, similar symptoms in sick contacts at home. Afebrile nontoxic well-hydrated. Lungs clear bilaterally no respiratory distress no evidence of dehydration. Neurologically intact interactive normal tone nonfocal. Likely viral respiratory illness consider COVID flu RSV or other viral etiology lower suspicion for bacterial pneumonia encephalitis meningitis or other serious bacterial infection. Trial of dexamethasone anti-inflammatory analgesia and antiemetic. Close reassessment. Patient would like a work note 18: 44 patient feels much better after meds. Quality:SDOH Health Related Social Needs: No Data to Display PFSH All Active Problems (Updated 10/17/23 @ 18:45 by Kevin Strauss MD) Viral illness (Acute) Abdominal pain affecting (Acute) Medical History Short stature Congenital anomaly of ear Financial insecurity Anxiety and depression Panic disorder Acne vulgaris Hearing loss, left Social History Smoking/Tobacco Use Status: Current every day Tobacco Type: e-cigarettes Smoking risk assessment performed?: Yes Alcohol Intake: current Alcohol Intake frequency: a few times a month Alcohol type: beer and hard liquor Drug use: Never Substance use type: does not use Housing: apartment Do you feel safe at home: Yes Do you feel safe in your relationship?: Yes PAWSS Have you Been Recently Intoxicated or Drunk Within the Last 30 days?: No Have you Ever Experienced Previous Episodes of Alcohol Withdrawal?: No Have you ever Experienced Withdrawal Seizures?: No Have you ever Experienced Delirium Tremens(DT)s?: No Have you ever undergone Alcohol Rehabilitation Treatment (i.e, inpt ot outpatient treatment programs)?: No Have you ever Experienced Blackouts?: No Have you ever Combined Alcohol with other Downers within the last 90 days?: No Have you ever Combined Alcohol with any other Substance of Abuse during the last 90 days?: No Positive Blood Alcohol level on Presentation? [PCS.BAL]: No Evidence of Increased Autonomic Activity (i.e. HR>120, tremor, sweating, agitation, nausea)?: No Result: 0
[2023-10-17 17:54] VITALS: TEMP 36.7
[2023-10-17] MEDS: Acetaminophen 500 MG TAB PO (17:54)
[2023-10-17] MEDS: Ondansetron O.D.T. 4 MG TABEF SL (17:55)
[2023-10-17] MEDS: Dexamethasone 10 MG/ML VIAL PO (17:55)
[2023-10-17] MEDS: Albuterol 2.5 MG/3 ML INH SOLN VIAL UPD (17:56)
[2023-10-17 18:41] VITALS: BP 106/61; PULSE 75; O2SAT 99
== END 2023-10-17 18:41 | disposition home or self-care (01) ==
PROVIDERS: Emergency Provider Emergency Medicine; PCP Nurse Practitioner Family
DX: R51.9 Headache, unspecified (principal); R05.1 Acute cough; R06.02 Shortness of breath; R09.81 Nasal congestion; R11.2 Nausea with vomiting, unspecified; R19.7 Diarrhea, unspecified; H92.02 Otalgia, left ear; B34.9 Viral infection, unspecified
CPT/HCPCS: 87637; 94640; 99284; 99283; J1100; J7613

== ENCOUNTER 2023-12-08 15:02 | Emergency (ER) | payer SELFPAY ==
[2023-12-08 15:14] VITALS: BP 98/67; PULSE 92; RESP 18; TEMP 37; O2SAT 100
[2023-12-08 16:32] VITALS: BP 111/61; PULSE 92; TEMP 37; O2SAT 98
--- NOTE | 2023-12-08 18:25 | ED.GENADUL_ITS ---
Discharge Plan Disposition Patient Disposition: Home Condition: Stable Discharge Details Clinical Impression: COVID-19 Primary Care Provider: Isabella Holly ED Provider: Viviana Gill Home Meds and New Rx's Prescriptions: No Action No Known Home Meds Discharge Instructions Instructions: COVID-19 ED Additional Instructions: Please follow-up with your primary care provider. Return to the Emergency Department with any worsening symptoms or any other concerns. Take over the counter medications as needed for body ache and fever relief. Stand Alone Forms: Work Release Discharge Data Discharge Date/Time-TO BE ENTERED AT DEPARTURE: 12/08/23 19:50 HPI General Date/Time Provider Initiated Documentation: 12/08/23 15:29 . HPI Narrative: The patient is a 23-year-old female with a history of anxiety, depression who comes to the emergency department for malaise. Reports she started feeling poorly yesterday. Reports that she has had chills and subjective fever. Reports that she has had loss of taste, loss of smell, generalized bodyaches. Admits that she had nausea but no vomiting and also had diarrhea. Denies abdominal pain with this. Denies concern. Denies urinary symptoms. Denies chest pain or shortness of breath. 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 Reports she has a daughter but her daughter is not ill and does not attend daycare either. Reports she last took Tylenol around 8:00 this morning and symptoms persisted so came to the emergency department this afternoon. Related Data Home Medications ?Medication ?Instructions ?Recorded ?Confirmed Unknown [No Known Home Meds] 07/29/19 12/08/23 Allergies Allergy/AdvReac Type Severity Reaction Status Date / Time codeine Allergy Nausea Unverified 12/08/23 15:18 Penicillins Allergy Nausea Unverified 12/08/23 15:18 General Stated Complaint: GenMedical CHANTE: 3 Review of Systems Narrative: Review of systems are negative except as mentioned. Exam Narrative Exam Narrative: The patient is in no acute distress. Oral mucosal membranes are moist. Heart is regular in rate and rhythm. Lungs are clear to auscultation bilaterally. Abdomen is soft with normal bowel sounds and nontender to palpation throughout. Skin is warm and dry. No CVA tenderness noted to palpation bilaterally. No lower extremity edema or calf tenderness is noted to palpation. Course Vital Signs Vital signs: Vital Signs Temperature 37.0 C 12/08/23 15:14 Pulse 92 H 12/08/23 15:14 Respiratory Rate 18 12/08/23 15:14 Blood Pressure 98/67 L 12/08/23 15:14 Pulse Oximetry 100 12/08/23 15:14 Temperature 37.0 C 12/08/23 16:32 Temperature Source Temporal Artery Scan 12/08/23 16:32 Pulse 92 H 12/08/23 16:32 Respiratory Rate 18 12/08/23 15:14 Blood Pressure 111/61 12/08/23 16:32 Pulse Oximetry 98 12/08/23 16:32 Medical Decision Making Blood work has been started on this patient. Patient's physical exam is benign which is reassuring. Blood work is back and this is unremarkable. Urine is negative for infectious process. The patient's viral screen came back positive for COVID. I have since updated the patient and now her partner for her up result. Patient talked about medication for COVID however she is not an appropriate candidate for this so this is not prescribed for her. She requested a work note. This will be given to her in particular highlighted to her that she should not return to work while she is symptomatic and while her COVID test continues to be positive. She is asked to follow-up with her primary care doctor as well but urged to return to the emergency department with any worsening symptoms or any other concerns. I told her as long as she is symptomatic and tested positive she needs to quarantine herself. Quality:SDOH Health Related Social Needs: No Data to Display PFSH All Active Problems (Updated 12/08/23 @ 19:38 by Viviana Gill DO) COVID-19 (Acute) Abdominal pain affecting (Acute) Medical History Short stature Congenital anomaly of ear Financial insecurity Anxiety and depression Panic disorder Acne vulgaris Hearing loss, left Social History Smoking/Tobacco Use Status: Current every day Tobacco Type: e-cigarettes Smoking risk assessment performed?: Yes Alcohol Intake: current Alcohol Intake frequency: a few times a month Alcohol type: beer and hard liquor Drug use: Never Substance use type: does not use Housing: apartment Do you feel safe at home: Yes Do you feel safe in your relationship?: Yes
[2023-12-08 18:27] VITALS: PULSE 90; RESP 12; TEMP 36.8; O2SAT 98
[2023-12-08 18:29] LABS: Lactate 0.6 mmol/L (0.6-1.4)
[2023-12-08 18:40] LABS: Abs Immature Grans 0.01 10^3/uL (0.0-0.06); Absolute Basophil Count 0.04 10^3/uL (0.0-0.2); Absolute Eosinophil Count 0.04 10^3/uL (0.0-0.7); Absolute Monocyte Count 0.91 10^3/uL (0.1-0.8); Absolute Neutrophil Count 3.87 10^3/uL (1.2-6.7); Basophils % 0.6 %; Eosinophils % 0.6 %; HCT 39.2 % (36.0-46.0); HGB 13.3 g/dL (11.2-15.7); Immature Grans % 0.2 %; Lymphocytes % 24.7 %; MCH 29.5 pg (27.0-33.0); MCHC 33.9 % (32.0-36.0); MCV 87 fL (80-95); Monocytes % 14.1 %; Neutrophils % 59.8 %; Platelet Count 277 10^3/uL (130-400); RBC 4.51 10^6/uL (3.93-5.22); RDW 13.7 % (11.7-14.6); RDW-SD 43.5 fL; WBC 6.47 10^3/uL (4.4-10.8)
[2023-12-08 18:45] LABS: Bilirubin Negative (Negative); Blood Small (Negative); Clarity Clear (Clear); Glucose Negative (Negative); Ketones Negative (Negative); Leukocyte Esterase Negative (Negative); Nitrite Negative (Negative); Specific Gravity <= 1.005 (1.005-1.025); Urobilinogen 0.2 mg/dL (Up to 0.2)
[2023-12-08 18:58] LABS: ALT 16 U/L (14-59); AST 12 U/L (15-37); Alkaline Phosphatase 87 U/L (46-116); Anion Gap 10.4 mmol/L (3-11); BUN 8 mg/dL (7-18); Bilirubin, Total 0.29 mg/dL (0.2-1.0); CO2 25.6 mmol/L (21.0-32.0); CREATININE 0.8 mg/dL (0.55-1.02); Chloride 102 mmol/L (98-107); Estimated GFR 105.45 (mL/min/1.73m2); Glucose 93 mg/dL (74-106); HCG Qual (Serum) Negative; Potassium 3.5 mmol/L (3.5-5.1); Sodium 138 mmol/L (136-145); Total Protein 8.1 g/dL (6.4-8.2)
[2023-12-08 19:13] LABS: Bacteria Negative HPF (Negative); C & S Indicated? No; Casts Negative LPF (Negative); Crystals Negative HPF (Negative); Epithelial Cells Few HPF (Negative); Mucus Negative (Negative); WBC 0-2 HPF (0-5)
[2023-12-08 19:18] LABS: Influenza A PCR Negative (Negative); Influenza B PCR Negative (Negative); RSV PCR Negative (Negative)
[2023-12-08 19:25] LABS: Source Nasopharynx
[2023-12-08 19:26] LABS: COVID-19 PCR Positive (Negative)
[2023-12-08 19:48] VITALS: PULSE 90; RESP 12; TEMP 36.8; O2SAT 99
== END 2023-12-08 19:50 | disposition home or self-care (01) ==
PROVIDERS: Student in an Organized Health Care Education/Training Program; Emergency Provider Emergency Medicine; PCP Nurse Practitioner Family
DX: U07.1 COVID-19 (principal); R52 Pain, unspecified; R11.0 Nausea; R43.0 Anosmia
CPT/HCPCS: 36415; 80053; 87637; 99283; 81003; 81015; 83605; 84703; 85025

== ENCOUNTER 2024-06-07 02:54 | Outpatient (CLI) | payer MEDICAID, SELFPAY ==
[2024-06-07 12:19] LABS: Panorama Kit Sent via Fed Ex
[2024-06-07 12:23] LABS: Abs Immature Grans 0.03 10^3/uL (0.0-0.06); Absolute Basophil Count 0.06 10^3/uL (0.0-0.2); Absolute Eosinophil Count 0.15 10^3/uL (0.0-0.7); Absolute Lymphocyte Count 2.32 10^3/uL (1.2-3.4); Absolute Neutrophil Count 6.18 10^3/uL (1.2-6.7); Basophils % 0.6 %; Eosinophils % 1.6 %; HCT 40.2 % (36.0-46.0); HGB 13.6 g/dL (11.2-15.7); Immature Grans % 0.3 %; Lymphocytes % 25.1 %; MCH 29.3 pg (27.0-33.0); MCHC 33.8 % (32.0-36.0); MCV 87 fL (80-95); MPV 8.8 fL (8.0-11.0); Monocytes % 5.4 %; Platelet Count 328 10^3/uL (130-400); RBC 4.64 10^6/uL (3.93-5.22); RDW 14.2 % (11.7-14.6); RDW-SD 44.5 fL; WBC 9.24 10^3/uL (4.4-10.8)
[2024-06-07 13:04] LABS: TSH (W/Ref FT4) 1.05 uIU/mL (0.36-3.74); Vitamin D 25 Total 15.9 ng/mL (30-100)
[2024-06-08 09:13] LABS: Hepatitis B Surface Ag Negative (Negative)
[2024-06-08 09:29] LABS: Rubella IgG Ab (UVM) Negative (See Note); Varicella IgG Antibody Negative (See Note)
[2024-06-08 09:44] LABS: Hepatitis C Ab w Rflx HCV PCR Negative (Negative)
[2024-06-08 10:01] LABS: HIV-1/2 Ag & Ab Screen Negative (Negative)
[2024-06-09 16:40] LABS: Syphilis IgG w/Reflex Nonreactive (Nonreactive)
[2024-06-23 18:08] LABS: Specimen WB Whole Blood
== END 2024-06-07 02:55 | disposition home or self-care (01) ==
LOC: LBO 02:54
PROVIDERS: Advanced Practice Midwife; PCP Nurse Practitioner Family; Visit Provider Advanced Practice Midwife
DX: Z34.91 Encounter for supervision of normal pregnancy, unspecified, first trimester (principal)
CPT/HCPCS: 36415; 81220; 81222; 82306; 86787; 86803; 86850; 86900; 86901; 87340; 87389; 84443; 85025; 86762; 86780

== ENCOUNTER 2024-06-07 12:20 | Outpatient (REF) | payer MEDICAID, SELFPAY ==
[2024-06-07 13:38] LABS: *AMPHETAMINES SCREEN URINE Negative (Negative); *BARBITURATES SCREEN URINE Negative (Negative); *BENZODIAZEPINES SCREEN URINE Negative (Negative); Cannabinoids THC Negative (Negative); Cocaine Screen,Urine Negative (Negative); METHADONE URINE SCREEN Negative (Negative); OPIATES URINE SCREEN Negative (Negative)
[2024-06-07 13:40] LABS: Tricyclic Antidepressants Negative (Negative)
[2024-06-08 11:39] LABS: Fentanyl Scr w/Rfx Confirm Negative ng/mL (<1)
[2024-06-08 13:25] LABS: Chlamydia Result Negative (Negative); GC Result Negative (Negative)
[2024-06-13 08:30] LABS: Buprenorphine Negative ng/mL (Cutoff: 5.0); Norbuprenorphine Negative ng/mL (Cutoff: 2.5)
== END 2024-06-07 12:21 | disposition home or self-care (01) ==
LOC: LBN 12:20
PROVIDERS: PCP Nurse Practitioner Family; Visit Provider Advanced Practice Midwife
DX: Z34.91 Encounter for supervision of normal pregnancy, unspecified, first trimester (principal)
CPT/HCPCS: 80307; 80348; 87491; 87591; 87086

== ENCOUNTER 2024-07-05 10:11 | Outpatient (CLI) | payer MEDICAID, SELFPAY ==
[2024-07-07 14:33] LABS: AFP 39.4 ng/mL; Cigarette smoking status non-Smoker; GA used in risk estimate Dates estimate; IVF Pregnancy No; Initial or repeat testing Initial testing; Insulin dependent diabetes No; Maternal Weight 106 lbs; Number of Fetuses 1; Physician Phone Number 802-748-7300; Prev Pregnancy w/NTD No; RECOMMENDED FOLLOW UP None.; Results Summary Normal risk
== END 2024-07-05 10:12 | disposition home or self-care (01) ==
LOC: LBO 10:11
PROVIDERS: PCP Nurse Practitioner Family; Visit Provider Advanced Practice Midwife
DX: Z34.91 Encounter for supervision of normal pregnancy, unspecified, first trimester (principal)
CPT/HCPCS: 36415; 82105

== ENCOUNTER 2024-07-16 17:09 | Outpatient (CLI) | payer MEDICAID, SELFPAY ==
[2024-07-16 17:13] VITALS: BP 113/75; PULSE 88; RESP 16; TEMP 36.6; O2SAT 100
--- NOTE | 2024-07-16 17:17 | ED.GENADUL_ITS ---
Discharge Plan Disposition Patient Disposition: Other Disposition Not Listed Other Facility: L&D Condition: Good Discharge Details Clinical Impression: Vaginal bleeding in patient at less than 20 weeks gestation Primary Care Provider: Isabella Holly ED Provider: Jj Marcelo Discharge Data Discharge Date/Time-TO BE ENTERED AT DEPARTURE: 07/16/24 18:07 HPI General Mode of arrival: ambulatory . Date/Time Provider Initiated Documentation: 07/16/24 17:12 . Limitations to Documentation: no limitations . Information obtained by: patient, RN notes reviewed and old records reviewed . HPI Narrative: Patient presents to ED with complaint of vaginal bleeding. Patient had intercourse with her significant other this morning. At noon she began to have some bleeding. She is approximately 16 weeks . She has been having some pelvic discomfort. She did speak to her vehicle window tinter who wanted her to be seen if she continued to have bleeding for more than 4 hours. Patient continues to have slight bleeding. It is not in a large amount and is not bright red. Continues to have some cramping pelvic pain. Denies lightheadedness or syncope. She denies hematuria but has been experiencing some mild urgency and dysuria. No fever or flank pain. Related Data Home Medications ?Medication ?Instructions ?Recorded ?Confirmed PNV 153-FA 400 mcg-om3 35 mg-dha 1 tab PO DAILY 05/19/24 07/16/24 25 mg-epa 5 mg-fish oil chew tablet ( Gummies) cholecalciferol (vitamin D3) 50 50 mcg PO DAILY #30 caps 06/07/24 07/16/24 mcg (2,000 unit) capsule Previous Rx's ?Medication ?Instructions ?Recorded cholecalciferol (vitamin D3) 50 50 mcg PO DAILY #30 caps 06/07/24 mcg (2,000 unit) capsule Allergies Allergy/AdvReac Type Severity Reaction Status Date / Time codeine Allergy Nausea Unverified 07/16/24 17:16 Penicillins Allergy Nausea Unverified 07/16/24 17:16 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 VS per triage. HEENT: NC/AT. Normal facial exam. Neck: Supple. Trachea midline. Lungs: Normal respiratory effort. GI: Gravid NT abdomen. Pelvic: deferred Neuro: A+O x 3. Normal speech, mentation, gait. Cranial nerves II - XII grossly intact. No gross motor or sensory deficit. Ext: No C/C/E. Course Vital Signs Vital signs: Vital Signs Temperature 97.8 F 07/16/24 17:13 Pulse 88 07/16/24 17:13 Respiratory Rate 16 07/16/24 17:13 Blood Pressure 113/75 07/16/24 17:13 Pulse Oximetry 100 07/16/24 17:13 Temperature 97.8 F 07/16/24 17:13 Pulse 88 07/16/24 17:13 Respiratory Rate 16 07/16/24 17:13 Blood Pressure 113/75 07/16/24 17:13 Pulse Oximetry 100 07/16/24 17:13 Oxygen Delivery Method Room Air 07/16/24 17:13 Oxygen Flow Rate 0 07/16/24 17:13 Medical Decision Making Patient presenting to ED with vaginal bleeding status post intercourse this mor vijay at 16 weeks . She is having some pelvic discomfort. Review of records shows that she is a positive for blood type. Case discussed with Dr. Zapien on for OB. Patient will be sent to L&D for evaluation there. I did place an order for ultrasound and radiology has called to see if a tech will come in. Urinalysis ordered. Patient transferred to labor and delivery for evaluation there. Medical Records Medical records reviewed: Yes I reviewed the patient's medical records. PFSH All Active Problems Financial insecurity (Acute) PCB (post coital bleeding) (Acute) Vaginal bleeding in patient at less than 20 weeks gestation (Acute) Other specified counseling (Acute) Maternal varicella, non-immune (Acute) Rubella non-immune status, antepartum (Acute) (Acute) Medical History Congenital hearing loss of right ear Panic disorder managed with coping skills Anxiety and depression no hx medication use, manages with coping medications Congenital anomaly of ear Acne vulgaris Family History (Updated 06/07/24 @ 11:10 by Yani Dominique CNM) Maternal Grandmother Diabetes Heart disease Mother Depression Social History Smoking/Tobacco Use Status: Unknown Second Hand Exposure: Yes (discussed avoidance, Bill FOB smokes cigarettes) Counseling given: provider counseling Smoking risk assessment performed?: Yes Alcohol Intake: former Counseling given: No Drug use: Never Substance use type: does not use Adopted: No Household members: children Housing: apartment Number of Children: 1 Communication Needs: Hard of Hearing current occupation: patient and FOB work at [employer] Pets and animals: No Sexually active: Yes Do you think of yourself as: straight/heterosexual Current gender identity: male Do you feel safe at home: Yes Do you feel safe in your relationship?: Yes History History 2 Para 1 Hx # Term Pregnancies 1 Multiple births Hx # Pregnancies Ectopic pregnancies AB induced Hx Number of Living Children 1 AB spontaneous Past Pregnancies Del. Date GA/Weeks # Preg Succ Route Wgt Sex Labor Lgth Anesth esia Location [facility] Compl 08/08/21 39 No Yes vaginal 2267.962 g Female 18 hours, la bor augmentation with pitocin [facility], [place] other Delivery Date: 08/08/21 Last Updated by: Leah Lundberg CNM Pitocin augmentation. Long second stage. VAVD, broken collar bone. Transport after discharge by [facility] and NICU admission at [facility] due to subdural hematoma
[2024-07-16 17:49] LABS: Bilirubin Negative (Negative); Blood Small (Negative); Clarity Clear (Clear); Glucose Negative (Negative); Ketones Trace mg/dL (Negative); Leukocyte Esterase Negative (Negative); Nitrite Negative (Negative); Specific Gravity 1.025 (1.005-1.025); Urobilinogen 0.2 mg/dL (Up to 0.2); pH 6.5 (5-8)
[2024-07-16 18:00] VITALS: BP 110/64; PULSE 83; RESP 16
[2024-07-16 18:02] LABS: Epithelial Cells Rare HPF (Negative); WBC Negative HPF (0-5)
[2024-07-16 18:03] LABS: Bacteria Negative HPF (Negative); C & S Indicated? No; Crystals Few Amorphous HPF (Negative); Mucus Trace (Negative)
--- NOTE | 2024-07-16 18:12 | PGE_ITS ---
Date of Service Date of service: 07/16/24 Time of Service: 18:12 Assessment and Plan Assessment and plan (1) PCB (post coital bleeding): Status: Acute Assessment and plan: A: 24 yo @ 16 wks, spontaneously resolving vaginal bleeding since coitus 6 hrs ago FHT 140's, cvx closed and firm, no active bleeding per speculum exam, scant blood tinged vaginal mucous noted P: s/p PCB, resolved, wellbeing verified, VPS sample collected and sent Pt has anatomy survey ultrasound scheduled in 2-3 weeks Advised pelvic rest until ultrasound completed F/up as needed and as scheduled Subjective Subjective Interval history since last seen: Vaginal bleeding noted immediately after intercourse about noon today, lower abd cramps and persistent blood tinged mucous though much less blood than earlier. Pt presented to ED and was referred to BC for evalution. Exam Const General: cooperative, healthy appearing, comfortable and no acute distress Nutritional Appearance: average body habitus and well nourished Orientation: alert, awake and oriented x3 Resp Effort & Inspection: normal respiratory effort and able to speak in complete sentences Cardio Rate: regular rate Rhythm: regular rhythm External Female Exam: normal external appearance Speculum Exam - Vagina: normal appearance of the vagina and normal vaginal discharge (scant blood tinged mucous) Speculum Exam - Cervix: normal appearance of the cervix and other Skin General skin exam: no rashes or lesions noted and elasticity normal Extrem General: normal to inspection, full ROM and normal gait Objective Last Vital Signs Temp 97.8 F 07/16/24 17:13 Pulse 88 07/16/24 17:13 Resp 16 07/16/24 17:13 BP 113/75 07/16/24 17:13 Pulse Ox 100 07/16/24 17:13 Laboratory Results - last 24 hr 07/16/24 17:42 Urine Color Yellow Urine Clarity Clear Urine pH 6.5 Ur Specific [place] 1.025 Urine Protein Negative Urine Ketones Trace H Urine Blood Small H Urine Nitrite Negative Urine Bilirubin Negative Urine Urobilinogen 0.2 Ur Leukocyte Esterase Negative Urine RBC 3-5 H Urine WBC Negative Ur Epithelial Cells Rare Urine Crystals Few Amorphous Urine Bacteria Negative Urine Mucus Trace Ur Culture Indicated? No Urine Glucose Negative Time Spent with Patient Time Spent with Patient: <25 minutes Time was spent: preparing to see the patient(eg.review tests), obtaining and/or reviewing separately otained hiistory, ordering medications,tests, procedures, indepentently interpreting results and counseling the patient
--- NOTE | 2024-07-16 18:26 | NUR.NOTE ---
Pt arrived on Center around 1800 hours from [facility] ED. Pt has c/o vaginal bleeding following intercourse. Has spoken with CNM earlier today and was encouraged to come to ED should bleeding continue. Pt states bleeding is less but still there, having some cramping as well. FHR noted to be 145 by doppler and VS taken, documented in ER assessment screens as OB intervention documentation not available. Speculum exam performed at bedside by JEANE Streeter and cervix found to be closed with no active bleeding. Vaginal Pathogen screening obtained, ER has already sent urine sample. Digital cervical exam also performed by JEANE and cervix remains closed. Nursing Note:
== END 2024-07-16 18:25 ==
LOC: ER 17:37 → BCD 18:08
PROVIDERS: Emergency Provider Emergency Medicine; PCP Nurse Practitioner Family; Visit Provider Obstetrics & Gynecology
DX: N93.0 Postcoital and contact bleeding (principal)
CPT/HCPCS: 81003; 81015; 87480; 87510; 87660; G0378

== ENCOUNTER 2024-08-02 03:52 | Outpatient (CLI) | payer MEDICAID, SELFPAY ==
--- NOTE | 2024-08-02 06:19 | DI.US_ITS ---
Exam(s) US OB 2-3 TRIMESTER EXAM: US OB 2-3 TRIMESTER CLINICAL HISTORY: ,z34.90. TECHNIQUE: Transabdominal obstetrical ultrasound performed. COMPARISON: No exams were available for comparison FINDINGS: Number of fetuses: 1 position: CEPHALIC heart rate: 134bpm Placental location: There is a grade 1 posterior placenta. The placental tip is 2.2 cm from the inte rnal os. No evidence of previa. Amniotic fluid index: Amount of fluid is within normal limits. ANATOMICAL SURVEY: Within normal limits. BIOMETRIC DATA: BPD: 4.26cm, 18weeks 6days HC: 17.22cm, 19weeks 6days AC: 14.31cm, 19weeks 5days FL: 3.31cm, 20weeks 2days Cisterna magna: 5.1mm Cerebellum: 1.85cm Lateral ventricle: 0.6 cm EFW: 321.25g, 0.69lb, 33.1% Composite Age: 19weeks 5days [place]: 12/22/2024 Heart Rate: 134bpm ANATOMICAL SURVEY: Four-chambered heart: Unremarkable. RVOT: Unremarkable. LVOT: Unremarkable. Left-sided stomach: Unremarkable. urinary bladder: Unremarkable. Bilateral kidneys: Unremarkable. Three-vessel cord: Unremarkable. Cord insertion: Unremarkable. Posterior fossa: Unremarkable. ventricles: Unremarkable. nose/lips: Unremarkable. Palate: Unremarkable. spine: Unremarkable. Two arms and two legs: Unremarkable. IMPRESSION: 1. Single live intrauterine gestation as above. 2. Normal anatomic survey. DATA REPOSITORY:
== END 2024-08-02 04:12 ==
LOC: DI 03:52
PROVIDERS: PCP Nurse Practitioner Family; Visit Provider Advanced Practice Midwife
DX: Z34.92 Encounter for supervision of normal pregnancy, unspecified, second trimester (principal); Z3A.19 19 weeks gestation of pregnancy
CPT/HCPCS: 76805

== ENCOUNTER 2024-08-30 11:34 | Outpatient (REF) | payer MEDICAID, SELFPAY ==
[2024-08-30 12:47] LABS: Bilirubin Negative (Negative); Blood Negative (Negative); Clarity Clear (Clear); Glucose Negative (Negative); Ketones Negative (Negative); Leukocyte Esterase Small (Negative); Nitrite Negative (Negative); Specific Gravity 1.015 (1.005-1.025); Urobilinogen 0.2 mg/dL (Up to 0.2)
[2024-08-30 12:55] LABS: Bacteria Negative HPF (Negative); C & S Indicated? No; Casts Negative LPF (Negative); Crystals Negative HPF (Negative); Epithelial Cells Few HPF (Negative); Mucus Negative (Negative); RBC Negative HPF (0-2); WBC 0-2 HPF (0-5)
== END 2024-08-30 11:35 | disposition home or self-care (01) ==
LOC: LBN 11:34
PROVIDERS: PCP Nurse Practitioner Family; Visit Provider Advanced Practice Midwife
DX: Z34.92 Encounter for supervision of normal pregnancy, unspecified, second trimester (principal); O26.892 Other specified pregnancy related conditions, second trimester; R39.15 Urgency of urination
CPT/HCPCS: 81003; 81015

== ENCOUNTER 2024-09-13 14:07 | Emergency (ER) | payer MEDICAID, SELFPAY ==
[2024-09-13 14:11] VITALS: BP 114/78; PULSE 98; RESP 20; TEMP 36.3; O2SAT 100
--- NOTE | 2024-09-13 14:15 | RT.EKG_ITS ---
APPROVED REPORT Exam: Resting ECG Reason for Exam: palpitations Patient Location: E HR:82 bpm ECG Measurements Heart Rate 82 AXIS FL 138 P 52 QRSd 74 QRS 68 QT 353 T 17 QTc 414 Conclusion Sinus rhythm...normal P axis, V-rate 60- 99 Normal sinus rhythm. No prior. WD
--- NOTE | 2024-09-13 14:42 | ED.GENADUL_ITS ---
Discharge Plan Disposition Patient Disposition: Home Condition: Stable Discharge Details Chief Complaint: Palpitatns Clinical Impression: Hypomagnesemia, Muscle spasms of neck Primary Care Provider: Isabella Holly ED Provider: Catia William Home Meds and New Rx's Prescriptions: No Action Gummies 400 mcg-35 mg- 25 mg-5 mg tablet,chewable 1 tab PO DAILY Discharge Instructions Instructions: Muscle Spasms (DC), Low Magnesium Level (DC), Palpitations (DC) Additional Instructions: I recommend outpatient cardiac monitoring for further evaluation. Referrals: Isabella Holly [Primary Care Provider] - 3 days Discharge Data Discharge Physician: Catia William [facility] General Date/Time Provider Initiated Documentation: 09/13/24 14:09 . HPI Narrative: 24-year-old female G2, P1 at 24 weeks gestation presents for evaluation of right neck spasms. Patient states that the symptoms started during the winter prior to her . They can occur several times a day. There is no known trigger. They last between 30 minutes and 2 hours. There is nothing specific that causes them to stop. She states that she does drink a very small amount of caffeine. The spasms do not seem to be related to caffeine ingestion. When they occur she is able to range her neck. She does not have any numbness or tingling to her extremities. No weakness in her extremities. She feels that the spasm goes down into her chest and causes some palpitations. She recently has started feeling lightheaded with the palpitations. She occasionally feels short of breath with the episodes. Occasionally she will feel fatigued after the episode. In between the episodes she does not have any chest pain or palpitations. She has been tolerating normal p.o. No fever or chills. No cough or cold. Her truck repair service estimator did refer her to [facility] vascular however she has not yet seen them. She has not had any imaging done of her carotid. No known trauma. She is not on any blood thinners. Related Data Home Medications ?Medication ?Instructions ?Recorded ?Confirmed PNV 153-FA 400 mcg-om3 35 mg-dha 1 tab PO DAILY 05/19/24 09/13/24 25 mg-epa 5 mg-fish oil chew tablet ( Gummies) Allergies Allergy/AdvReac Type Severity Reaction Status Date / Time codeine Allergy Nausea Verified 09/13/24 14:16 Penicillins Allergy Nausea Verified 09/13/24 14:16 General Stated Complaint: Palpitatns CHANTE: 3 Review of Systems Narrative: Remainder of review of systems otherwise negative except for as noted in the HPI x 10. Exam Narrative Exam Narrative: General: non-toxic, no respiratory distress, comfortable HEENT: normocephalic, atraumatic, lids and lashes normal, PERRL, EOMI, anicteric sclera, no conjunctival injection, moist oral mucosa Neck: No carotid bruit, no meningeal signs, no vertebral tenderness Card: regular rate and rhythm, S1S2, no murmurs, rubs, or gallops Lungs: good air entry, clear to auscultation bilaterally. no wheezes, rales, rhonchi, or retractions Abd: soft, non-tender, gravid, normal bowel sounds, no rebound or guarding, no peritoneal signs Musculoskeletal: full range of motion of arms and legs, no tenderness to palpation. no clubbing, cyanosis, or edema Neurologic: GSC 15, CN 2-12 intact bilaterally, speech normal, strength normal, sensation intact distally in all four extremities, gait normal, 2+ biceps tendon reflexes, normal finger to nose, normal rapid alternating movements, no pronator drift Psych: alert and oriented Skin: no petechiae, no lesions, warm and dry Course Vital Signs Vital signs: Vital Signs Temperature 36.3 C L 09/13/24 14:11 Pulse 98 H 09/13/24 14:11 Respiratory Rate 20 09/13/24 14:11 Blood Pressure 114/78 09/13/24 14:11 Pulse Oximetry 100 09/13/24 14:11 Temperature 36.3 C L 09/13/24 14:11 Pulse 98 H 09/13/24 14:11 Respiratory Rate 20 09/13/24 14:11 Blood Pressure 114/78 09/13/24 14:11 Blood Pressure Position Sitting 09/13/24 14:11 Pulse Oximetry 100 09/13/24 14:11 Oxygen Delivery Method Room Air 09/13/24 14:11 Oxygen Flow Rate 0 09/13/24 14:11 Medical Decision Making 24-year-old female G2, P1 at 24 weeks gestation presents for evaluation of intermittent spasms to her right neck which correlates with palpitations. She did have an episode 1 hour prior to ED evaluation. It has already resolved. At time my evaluation she is neurologically intact. NIH stroke surgical 0. EKG is unremarkable. Laboratory studies show mildly low magnesium. This was replaced orally. Ultrasound of neck is unremarkable. Patient did not have any episodes while in the emergency department. We do feel that she would benefit from Zio patch monitoring to see if she is having some type of arrhythmia while she has these episodes. I have discussed results and recommendations with on-call OB Dr. Welsh. She is in agreement with plan and will help arrange follow-up. Patient understands indications to return. ECG Data Interpretation: 12 lead EKG performed at 1417 Indication: Neck spasm, palpitation Rhythm: Normal sinus rhythm Rate: 82 [place]:Normal Intervals: Normal QRS: Normal ST segments: Normal T Waves: Normal INTERPRETATION: Sinus rhythm Comparison to old EKG: No prior The 12 lead EKG was interpreted by myself Quality:SDOH Health Related Social Needs: No Data to Display PFSH All Active Problems (Updated 09/13/24 @ 17:04 by Catia William MD) Muscle spasms of neck (Acute) Hypomagnesemia (Acute) Vasospasm (Acute) new onset right sided vasospasm, carotid artery? History of trauma (Acute) Bacterial vaginosis in (Acute) Financial insecurity (Acute) PCB (post coital bleeding) (Acute) Maternal varicella, non-immune (Acute) Rubella non-immune status, antepartum (Acute) (Acute) Medical History Vaginal bleeding in patient at less than 20 weeks gestation Congenital hearing loss of right ear Panic disorder managed with coping skills Anxiety and depression no hx medication use, manages with coping medications Congenital anomaly of ear Acne vulgaris Family History Maternal Grandmother Diabetes Heart disease Mother Depression Social History Smoking/Tobacco Use Status: Unknown Second Hand Exposure: Yes (discussed avoidance, Bill FOB smokes cigarettes) Counseling given: provider counseling Smoking risk assessment performed?: Yes Alcohol Intake: former Counseling given: No Drug use: Never Substance use type: does not use Adopted: No Household members: children Housing: apartment Number of Children: 1 Communication Needs: Hard of Hearing current occupation: patient and FOB work at [employer] Pets and animals: No Sexually active: Yes Do you think of yourself as: straight/heterosexual Current gender identity: male Do you feel safe at home: Yes Do you feel safe in your relationship?: Yes History History 2 Para 1 Hx # Term Pregnancies 1 Multiple births 0 Hx # Pregnancies 0 Ectopic pregnancies 0 AB induced 0 Hx Number of Living Children 1 AB spontaneous 0 Past Pregnancies Del. Date GA/Weeks # Preg Succ Route Wgt Sex Labor Lgth Anesth esia Location Prov Complic 08/08/21 39 No Yes vaginal 2267.962 g Female 18 hours, la bor augmentation with pitocin [facility], [place] other Delivery Date: 08/08/21 Last Updated by: Taniya Saucedo Pitocin aug & epidural, pushed 4 hrs, VAVD, baby needed resuscitation, [facility] to [facility]: subdural hematoma and fx clavicle PAWSS Have you Been Recently Intoxicated or Drunk Within the Last 30 days?: No Have you Ever Experienced Previous Episodes of Alcohol Withdrawal?: No Have you ever Experienced Withdrawal Seizures?: No Have you ever Experienced Delirium Tremens(DT)s?: No Have you ever undergone Alcohol Rehabilitation Treatment (i.e, inpt ot outpatient treatment programs)?: No Have you ever Experienced Blackouts?: No Have you ever Combined Alcohol with other Downers within the last 90 days?: No Have you ever Combined Alcohol with any other Substance of Abuse during the last 90 days?: No Positive Blood Alcohol level on Presentation? [PCS.BAL]: No Evidence of Increased Autonomic Activity (i.e. HR>120, tremor, sweating, agitation, nausea)?: No Result: 0
[2024-09-13 15:23] LABS: Abs Immature Grans 0.03 10^3/uL (0.0-0.06); Absolute Basophil Count 0.05 10^3/uL (0.0-0.2); Absolute Eosinophil Count 0.13 10^3/uL (0.0-0.7); Absolute Lymphocyte Count 2.19 10^3/uL (1.2-3.4); Absolute Monocyte Count 0.52 10^3/uL (0.1-0.8); Absolute Neutrophil Count 5.57 10^3/uL (1.2-6.7); Basophils % 0.6 %; Eosinophils % 1.5 %; HCT 35.9 % (36.0-46.0); HGB 11.7 g/dL (11.2-15.7); Immature Grans % 0.4 %; Lymphocytes % 25.8 %; MCH 29.1 pg (27.0-33.0); MCHC 32.6 % (32.0-36.0); MCV 89 fL (80-95); MPV 8.5 fL (8.0-11.0); Monocytes % 6.1 %; Neutrophils % 65.6 %; Platelet Count 324 10^3/uL (130-400); RBC 4.02 10^6/uL (3.93-5.22); RDW 13.2 % (11.7-14.6); WBC 8.49 10^3/uL (4.4-10.8)
--- NOTE | 2024-09-13 15:30 | DI.US_ITS ---
Exam(s) US CAROTID EXAM: US CAROTID CLINICAL HISTORY: right neck spasm with palpitations. TECHNIQUE: Ultrasound carotids performed using grayscale, color-flow, and spectral Doppler imaging. COMPARISON: US US OB 2-3 TRIMESTER from 08/02/2024 FINDINGS: CAROTID ARTERIES IN THE NECK: There is no evidence of significant stenosis in the common carotid arteries and carotid bifurcations nor within the proximal, mid, and distal internal carotid arteries in the neck. There are no elevate d velocities in these vessels. VERTEBRAL ARTERIES: Antegrade flow is demonstrated in both vertebral arteries in the neck. Measurements: R Bulb: 71.9cm/s PS / 28cm/s ED R CCA: 84.3cm/s PS / 30.5cm/s ED R ECA: 104.4cm/s PS / 15.9cm/s ED R ICA Prox: 66.6cm/s PS / 35.6cm/s ED R ICA Mid: 72.5cm/s PS / 36.6cm/s ED R ICA Distal: 73.6cm/s PS /35.5cm/s ED R Vert: 49.5cm/s PS / 18.9cm/s ED R SVR: 0.9 R DVR: 1.2 L Bulb: 74.9cm/s PS / 29.1cm/s ED L CCA: 82.6cm/s PS / 31.3cm/s ED L ECA: 85.9cm/s PS / 18.1cm/s ED L ICA Prox: 68.2cm/s PS / 36.3cm/s ED L ICA Mid: 72.9cm/s PS / 32.5cm/s ED L ICA Distal: 82.3cm/s PS / 35.3cm/s ED L Vert: 56.4cm/s PS / 28.1cm/s ED L SVR: 1 L DVR: 1.1 IMPRESSION: No evidence for hemodynamically significant carotid stenosis. Antegrade flow is demonstrated in both vertebral arteries in the neck Criteria for Carotid Stenosis: Normal: ICA PSV <125 cm/s no plaque or intimal thickening is visible. <50% stenosis: ICA PSV <125 cm/s and plaque or intimal thickening is visible. 50-69% stenosis: ICA PSV is 125-250 cm/s and plaque is visible. >70% stenosis to near occlusion: ICA PSV >250 cm/s with visible plaque and luminal narrowing. DATA REPOSITORY:
[2024-09-13 15:55] LABS: ALT 18 U/L (14-59); AST 15 U/L (15-37); Albumin 2.9 g/dL (3.4-5.0); Alkaline Phosphatase 93 U/L (46-116); Anion Gap 10.3 mmol/L (3-11); BUN 9 mg/dL (7-18); Bilirubin, Total 0.2 mg/dL (0.2-1.0); CO2 26.7 mmol/L (21.0-32.0); CREATININE 0.7 mg/dL (0.55-1.02); Chloride 105 mmol/L (98-107); Estimated GFR 123.01 (mL/min/1.73m2); Glucose 72 mg/dL (74-106); Potassium 3.5 mmol/L (3.5-5.1); Sodium 142 mmol/L (136-145); TSH (W/Ref FT4) 1.09 uIU/mL (0.36-3.74); Total Protein 7.5 g/dL (6.4-8.2); Troponin I 4 ng/L (<or=51)
[2024-09-13 16:31] LABS: Magnesium 1.7 mg/dL (1.8-2.4)
[2024-09-13 16:59] LABS: Troponin I 4 ng/L (<or=51)
[2024-09-13] MEDS: Magnesium Oxide 400 MG TAB PO (17:02)
[2024-09-13 17:46] VITALS: BP 108/75; PULSE 81; O2SAT 99
== END 2024-09-13 18:13 | disposition home or self-care (01) ==
PROVIDERS: Emergency Provider Emergency Medicine Emergency Medical Services; PCP Nurse Practitioner Family
DX: O99.412 Diseases of the circulatory system complicating pregnancy, second trimester (principal); R00.2 Palpitations; O26.892 Other specified pregnancy related conditions, second trimester; E83.42 Hypomagnesemia; M62.838 Other muscle spasm; Z3A.24 24 weeks gestation of pregnancy
CPT/HCPCS: 36415; 80053; 93005; 99284; 83735; 84443; 84484; 85025; 93010; 93880

== ENCOUNTER 2024-09-27 02:00 | Outpatient (CLI) | payer MEDICAID, SELFPAY ==
[2024-09-27 12:28] LABS: HCT 34.4 % (36.0-46.0); HGB 11.1 g/dL (11.2-15.7); MCH 27.8 pg (27.0-33.0); MCHC 32.3 % (32.0-36.0); MCV 86 fL (80-95); MPV 8.6 fL (8.0-11.0); Platelet Count 344 10^3/uL (130-400); RBC 3.99 10^6/uL (3.93-5.22); RDW 13.1 % (11.7-14.6); RDW-SD 40.7 fL; WBC 9.68 10^3/uL (4.4-10.8)
[2024-09-27 12:39] LABS: Glucose,1 Hr (Glucola) 84 mg/dL (80-140)
[2024-09-27 14:11] LABS: *AMPHETAMINES SCREEN URINE Negative (Negative); *BARBITURATES SCREEN URINE Negative (Negative); *BENZODIAZEPINES SCREEN URINE Negative (Negative); Cannabinoids THC Negative (Negative); Cocaine Screen,Urine Negative (Negative); METHADONE URINE SCREEN Negative (Negative); OPIATES URINE SCREEN Negative (Negative)
[2024-09-27 14:12] LABS: Tricyclic Antidepressants Negative (Negative)
[2024-09-29 12:35] LABS: Fentanyl Scr w/Rfx Confirm Negative ng/mL (<1)
[2024-10-05 10:22] LABS: Buprenorphine Negative ng/mL (Cutoff: 5.0); Norbuprenorphine Negative ng/mL (Cutoff: 2.5)
== END 2024-09-27 02:01 | disposition home or self-care (01) ==
LOC: LBO 02:00
PROVIDERS: PCP Nurse Practitioner Family; Visit Provider Advanced Practice Midwife
DX: Z34.91 Encounter for supervision of normal pregnancy, unspecified, first trimester
CPT/HCPCS: 36415; 80307; 80348; 82950; 85027

== ENCOUNTER 2024-11-29 12:23 | Outpatient (REF) | payer MEDICAID, SELFPAY | END 2024-11-29 12:24 | disposition home or self-care (01) | LOC: LBN 12:23 | PROVIDERS: PCP Nurse Practitioner Family; Visit Provider Advanced Practice Midwife | DX: Z34.93 Encounter for supervision of normal pregnancy, unspecified, third trimester (principal); Z3A.37 37 weeks gestation of pregnancy | CPT/HCPCS: 87186; 87081 ==

== ENCOUNTER 2024-11-29 14:02 | Outpatient (CLI) | payer MEDICAID, SELFPAY ==
[2024-11-29 12:53] LABS: Abs Immature Grans 0.07 10^3/uL (0.0-0.06); HCT 29.5 % (36.0-46.0); HGB 9.1 g/dL (11.2-15.7); Immature Grans % 0.7 %; MCH 24.3 pg (27.0-33.0); MCHC 30.8 % (32.0-36.0); MCV 79 fL (80-95); MPV 9.8 fL (8.0-11.0); Platelet Count 294 10^3/uL (130-400); RBC 3.75 10^6/uL (3.93-5.22); RDW 14.6 % (11.7-14.6); RDW-SD 41.4 fL; WBC 10.53 10^3/uL (4.4-10.8)
[2024-11-29 13:29] LABS: Iron 23 ug/dL (50-170); Total Iron Binding Capacity 569 ug/dL (250-450); Transferrin Sat 4 % (15-50)
[2024-11-29 13:42] LABS: Ferritin 6 ng/mL (8-252)
[2024-11-30 09:53] LABS: Transferrin 406 mg/dL (201-352)
== END 2024-11-29 14:03 | disposition home or self-care (01) ==
LOC: LBO 14:02
PROVIDERS: PCP Nurse Practitioner Family; Visit Provider Advanced Practice Midwife
DX: Z34.93 Encounter for supervision of normal pregnancy, unspecified, third trimester (principal); O99.013 Anemia complicating pregnancy, third trimester
CPT/HCPCS: 36415; 82728; 83540; 83550; 84466; 85025

== ENCOUNTER 2024-12-05 09:20 | Outpatient (CLI) | payer MEDICAID, SELFPAY ==
[2024-12-05 10:42] VITALS: BP 136/88; PULSE 101; RESP 18
[2024-12-05 11:24] VITALS: BP 136/88; PULSE 101; TEMP 36.7
[2024-12-05] MEDS: IRON SUCROSE COMPLEX 200 MG in Normal Saline 100 ML 400 MG IVPB (12:00)
--- NOTE | 2024-12-05 12:11 | W.OBNST ---
Date of service: 12/05/24 Time of Service: 12:11 NST Evaluation Reason for NST Reasons for Nonstress Test: OTHER, SEE COMMENT Reason for NST Other: possible srom Gestational Age Gestational Age in Weeks and Days: 38 Weeks and 0Days Test and Monitor Explained Test/Monitor Explained: Test Explained, Monitor Explained and Patient Verbalized Understanding Vital Signs Blood Pressure: 136/88 Pulse: 101 Temperature: 98.0 F Urine Results Urine Protein: Negative Urine Ketones: Negative Urine Glucose: Negative Urine Blood: Negative NST Information Date on Monitor: 12/05/24 Time on Monitor: 10:21 Date off Monitor: 12/05/24 Time off Monitor: 11:10 Total Time on Monitor: 49 NST Evaluation Patient States Movement: Present FHR Baseline: 150 Variability: Moderate 6-25 bpm Accelerations: 15x15 Decelerations: None NST Results: Reactive Note Ultrasound Done: N/A. NST Note Note: Nuria experienced leaking of clear fluid this morning and has had contractions x 12 hours. They are regular but less painful this morning. he also complains of constipation and rectal pressure and pain when she pushes. ROM plus neg. nitrazine and ferning neg. cervix 1 cm /50 % /-1/midposition. Signs of labor reviewed. Colace and dulcolax provided with instructions. Continue colace BID. IV iron provided as she was scheduled for iron infusion tomorrow morning at infusion therapy. NST Reviewed and Verified by: Leah Lundberg
[2024-12-05 12:16] VITALS: BP 136/88; PULSE 101; TEMP 36.7
[2024-12-05] MEDS: Docusate Sodium 100 MG CAP PO (12:23)
[2024-12-05] MEDS: Bisacodyl 5 MG TABEC PO (12:24)
== END 2024-12-05 12:30 ==
LOC: BCD 09:21 → OBS 10:29
PROVIDERS: PCP Nurse Practitioner Family; Visit Provider Advanced Practice Midwife
DX: Z3A.38 38 weeks gestation of pregnancy (principal); O47.1 False labor at or after 37 completed weeks of gestation
CPT/HCPCS: 84112; 96365; 59025; J1756

== ENCOUNTER 2024-12-07 07:59 | Observation (INO) | payer MEDICAID, SELFPAY ==
[2024-12-07 08:04] VITALS: BP 137/79; PULSE 91; RESP 16; TEMP 36.7; O2SAT 100
[2024-12-07 08:08] VITALS: PULSE 95; O2SAT 100
--- NOTE | 2024-12-07 12:30 | HPE_ITS ---
Date of service: 12/07/24 Time of Service: 09:00 Assessment and Plan Assessment and plan (1) Prolonged latent phase of labor: Status: Acute Assessment and plan: Admitted to center for observation. Will encourage comfortable positions and reassess in 2-3 hours for active labor. (2) Anemia affecting : Status: Acute Assessment and plan: iron infusion provided 2 days ago. OB-HPI Labor/Delivery History of Present Illness Reason for Visit: labor Chief Complaint: Uterine Contractions. [place] Calculator Estimated Delivery Date Method Current WG Current Estimate 12/19/24 LMP (Certain) 38w 2d Other Estimates 12/20/24 Ultrasound #1 38w 1d Comments: Nuria has been experiencing contractions off and on for 48 hours. She was evaluated at the center 48 hours ago and was 1 cm/50% effaced. She did not sleep well last night and she complains of fatigue. History of Present Expected Delivery Route/Plan - CNM FOB - Bill Perla (1st child together) BG Varicella and rubella non- immune, offer vaccines post Planning epidural, avoid vacuum-assist (prev was negative experience) GBS pos. - discussed with Nuria, will offer prophylaxis is labor. Clindamycin resistant Specific Issues/Plan 1. 5-P's positive. initial UDS negative; 28wk UDS=negative 2. hx traumatic delivery at [facility], VAVD: broken collar bone & subdural hematoma, NICU admit @ [facility], denies shoulder dystocia 2a. pt signed record release, not able to locate in chart 3. 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 [facility] Vascular consult ordered, scheduled 10/18 4a. [place] ER for neck spasm, negative neuro/cardiac wk/up, nml neck u/s, hypomagneisum 4b. [facility] vascular consult: no carotid artery disease, ?enlarged jugular vein, recommended ref to endo and/or cardiology 4c. [facility] for growth US/consult @ 35 wks: EFW 59th%, JOSI 17, possible dx pulsatile carotid, if maternal echo is nml via cardiology then no indication for delivery @ tertiary care-Maternal echo (Done 11/23) normal. 4d. repeat EKG (ordered), monitor BP at home daily, [facility] cardiology for echo 11/22: Normal. 5. Anemia- 11/29 Hgb 9.1, HCT 29.5- iron infusions ordered. 6. Penicillin allergy - Clindamycin resistant PFSH All Active Problems (Updated 12/07/24 @ 12:33 by Leah Lundberg CNM) Prolonged latent phase of labor (Acute) Anemia affecting (Acute) Jugular venous engorgement (Acute) Vasospasm (Acute) new onset right sided vasospasm, carotid artery? History of trauma (Acute) Bacterial vaginosis in (Acute) Financial insecurity (Acute) PCB (post coital bleeding) (Acute) Maternal varicella, non-immune (Acute) Rubella non-immune status, antepartum (Acute) (Acute) Medical History Vaginal bleeding in patient at less than 20 weeks gestation Congenital hearing loss of right ear Panic disorder managed with coping skills Anxiety and depression no hx medication use, manages with coping medications Congenital anomaly of ear Acne vulgaris Family History Maternal Grandmother Diabetes Heart disease Mother Depression Social History Smoking/Tobacco Use Status: Unknown Second Hand Exposure: Yes (discussed avoidance, Bill FOB smokes cigarettes) Counseling given: provider counseling Smoking risk assessment performed?: Yes Alcohol Intake: former Counseling given: No Drug use: Never Substance use type: does not use Adopted: No Household members: children Housing: apartment Number of Children: 1 Communication Needs: Hard of Hearing current occupation: patient and FOB work at [employer] Pets and animals: No Sexually active: Yes Do you think of yourself as: straight/heterosexual Current gender identity: male Do you feel safe at home: Yes Do you feel safe in your relationship?: Yes History History 2 Para 1 Hx # Term Pregnancies 1 Multiple births 0 Hx # Pregnancies 0 Ectopic pregnancies 0 AB induced 0 Hx Number of Living Children 1 AB spontaneous 0 Past Pregnancies Del. Date GA/Weeks # Preg Succ Route Wgt Sex Labor Lgth Anesth esia Location Prov Complic 08/08/21 39 No Yes vaginal 5 lb 10 oz Female 18 hours, la bor augmentation with pitocin [facility], [place] other Delivery Date: 08/08/21 Last Updated by: Leah Lundberg CNM Pitocin aug & epidural, pushed 4 hrs, VAVD, baby needed resuscitation, Emergency DHART to [facility] at 2-3 days old: subdural hematoma and bilateral fx clavicle, jaundiced. Meds Allergies and Home Medications Allergies Allergy/AdvReac Type Severity Reaction Status Date / Time codeine Allergy Nausea Verified 12/06/24 10:14 Penicillins Allergy Nausea Verified 12/06/24 10:14 Home Medications ?Medication ?Instructions ?Recorded ?Confirmed ?Type PNV 153-FA 400 mcg-om3 35 mg-dha 1 tab PO DAILY 12/06/24 History 25 mg-epa 5 mg-fish oil chew tablet ( Gummies) blood pressure test kit-medium #1 ea 11/15/24 12/06/24 Rx Exam Physical Exam Vital signs: Temp Pulse Resp BP Pulse Ox 98.1 F 95 H 16 137/79 100 12/07/24 08:04 12/07/24 08:08 12/07/24 08:04 12/07/24 08:04 12/07/24 08:08 Vital Signs Reviewed: Yes Constitutional Constitutional: no acute distress Detailed Labor and Delivery Exam Dilation: 2 Effacement (%): 75 station: -2 Cervix position: posterior Consistency: soft Regalado Score: Cervical Points Exam 0 1 2 3 Dilation Closed 1-2cm 3-4 cm 5-6cm Effacement 0-30% 40-50% 60-70% 80% Consistency Firm Medium Soft Station -3 -2 -1,0 +1,+2 Position Posterior Mid Anterior Amniotic Membrane Status: Intact Monitor Mode: External Contraction Frequency(min): every 3-5 Contraction Duration(sec): 50 Contraction Intensity: Moderate Fetus A Heart Rate Baseline: 140 Monitor Accelerations: 15 X 15 Monitor Decelerations: None Variability: Moderate (6-25 BPM) Presentation: Cephalic Categories: Category I Est. Weight: 7 HEENT Exam HEENT Exam: Normal Respiratory Exam Respiratory Exam: Normal Cardiovascular Exam Cardiovascular Exam: Normal Exam Exam: Normal Extremities Exam Extremities Exam: Normal Skin Exam Skin Exam: Normal Psychiatric Exam Psychiatric Exam: Normal Risk Assessment Risk for Shoulder Dystocia Historical/Initial OB: NEGATIVE FOR: Pelvic Abnormality, Pre- BMI>30, Previous Shoulder Dystocia or Previous Macrosomia 36 Weeks: NEGATIVE FOR: Current Gestational DM, EFW>4500gms or Maternal Weight Gain>40lbs Risk for Pre-Eclampsia Date Initiated/Initials: 06/07 RG Yes, if one or more: NEGATIVE FOR: Hx Pre-E/Gest HTN, Chronic HTN, Multiple Gestation, Pre-gestational DM, Renal Disease, Systemic Lupus or APA Syndrome Yes, if 2 or more: NEGATIVE FOR: Nulliparity, Age>= 35 yrs, >10yr btwn pregnancies, BMI>30, ethinicty, Mother/Sister w/ Pre-E or Previous IUGR Risk for Post- Hemorrhage Initial: NEGATIVE FOR: Multiple Gestation, Previous PPH, Known Clotting D eficiency, Grand Multiparity or Anticoagulation 36 Weeks: NEGATIVE FOR: Anemia, hgb<10, Low platelets(thrombocytopenia), Gestational HTN or Pre-E, Polyhydraminios or EFW>4500gms Risks Reviewed Risks Reviewed Upon Admission: Yes
--- NOTE | 2024-12-07 12:37 | W.PM.OBNL1 ---
Date of service: 12/07/24 Time of Service: 12:37 Informed Consent Informed Consent: Risk,Benefits,Alternatives Discussed (returning home to await active labor or therapeutic rest. ) Pelvic Exam Dilation: 3 Effacement (%): 80 station: -1 Cervix Position: posterior Consistency: soft Vaginal Exam Presentation: Cephalic Assessment and Plan Assessment and plan (1) Prolonged latent phase of labor: Status: Acute Assessment and plan: Discussed options with Nuria and her partner Bill of returning home to await active labor or staying at the center for therapeutic rest. Nuria feels uncertain about when to return and that was reviewed. She chose to stay and will administer Morphine 10 mg and vistaril PO for sleep and rest was encouraged. Objective Temp Pulse Resp BP Pulse Ox 98.1 F 95 H 16 137/79 100 12/07/24 08:04 12/07/24 08:08 12/07/24 08:04 12/07/24 08:04 12/07/24 08:08 Laboratory Results WBC Cancelled 12/07/24 08:01 RBC Cancelled 12/07/24 08:01 Hgb Cancelled 12/07/24 08:01 Hct Cancelled 12/07/24 08:01 MCV Cancelled 12/07/24 08:01 MCH Cancelled 12/07/24 08:01 MCHC Cancelled 12/07/24 08:01 RDW Cancelled 12/07/24 08:01 Plt Count Cancelled 12/07/24 08:01 MPV Cancelled 12/07/24 08:01 ABO/Rh Cancelled 12/07/24 08:01 Antibody Screen Cancelled 12/07/24 08:01 Subjective Patient Reports: No new Complaints Interval history since last seen: Nuria drank several glasses of water and her contractions became less frequent and strong. She fell asleep and slept soundly for 30 minutes and was not disturbed. Results Hemoglobin/Hematocrit: Hgb Cancelled 12/07/24 08:01 Hct Cancelled 12/07/24 08:01
[2024-12-07 12:45] VITALS: TEMP 36.7
[2024-12-07] MEDS: hydrOXYzine PAMOATE 25 MG CAP 50 MG PO (12:45)
[2024-12-07 13:04] VITALS: TEMP 36.7
[2024-12-07] MEDS: MORPHine 10 MG/ML VIAL IM (13:04)
--- NOTE | 2024-12-08 05:04 | DSE_ITS ---
Date of service: 12/07/24 Time of Service: 20:00 DS: Diagnosis Discharge Diagnosis (1) Prolonged latent phase of labor: Status: Resolved Asessment and Plan: Nuria slept well with Morphine IM and vistaril PO. She awoke with milder contractions and was discharged to home with instructions to return with stronger contractions. Follow up with visit at the office. Discharge Plan Disposition Patient Disposition: Home Condition: Stable Discharge Details Reason For Visit: labor Admit Date/Time: 12/07/24 07:59 Admit Provider: Leah Lundberg Attending Provider: Leah Lundberg Primary Care Provider: Isabella Holly Home Meds and New Rx's Prescriptions: No Action Gummies 400 mcg-35 mg- 25 mg-5 mg tablet,chewable 1 tab PO DAILY (DME) blood pressure test kit-medium Kit See Rx Instructions .Route Qty: 1 0RF Rx Instructions: Daily BP monitoring during Discharge Instructions Activity:: Activity as Tolerated Equipment/Supplies:: No Equipment Needed Diet:: As Tolerated Discharge Data Discharge Date/Time-TO BE ENTERED AT DEPARTURE: 12/07/24 18:15 OB:DS Summary Contraception Discussed Contraception Discussed: No, Status at Discharge Functional status at discharge: independent ambulation Overall status at discharge: patient is back to baseline Mental Status: mental status grossly normal Speech and Movement: speech and movement normal Mood: congruent mood Affect: normal affect Exam Physical Exam Vital signs: Temp Pulse Resp BP Pulse Ox 98.1 F 95 H 16 137/79 100 12/07/24 13:04 12/07/24 08:08 12/07/24 08:04 12/07/24 08:04 12/07/24 08:08 [facility] All Active Problems (Updated 12/08/24 @ 04:20 by Leah Lundberg CNM) Group B streptococcal infection during (Acute) Spontaneous onset of labor (Acute) Anemia affecting (Acute) Jugular venous engorgement (Acute) Vasospasm (Acute) new onset right sided vasospasm, carotid artery? History of trauma (Acute) Bacterial vaginosis in (Acute) Financial insecurity (Acute) PCB (post coital bleeding) (Acute) Maternal varicella, non-immune (Acute) Rubella non-immune status, antepartum (Acute) (Acute) Medical History Vaginal bleeding in patient at less than 20 weeks gestation Congenital hearing loss of right ear Panic disorder managed with coping skills Anxiety and depression no hx medication use, manages with coping medications Congenital anomaly of ear Acne vulgaris Family History Maternal Grandmother Diabetes Heart disease Mother Depression Social History Smoking/Tobacco Use Status: Unknown Second Hand Exposure: Yes (discussed avoidance, Bill FOB smokes cigarettes) Counseling given: provider counseling Smoking risk assessment performed?: Yes Alcohol Intake: former Counseling given: No Drug use: Never Substance use type: does not use Adopted: No Household members: children Housing: apartment Number of Children: 1 Communication Needs: Hard of Hearing current occupation: patient and FOB work at [employer] Pets and animals: No Sexually active: Yes Do you think of yourself as: straight/heterosexual Current gender identity: male Do you feel safe at home: Yes Do you feel safe in your relationship?: Yes History History 2 Para 1 Hx # Term Pregnancies 1 Multiple births 0 Hx # Pregnancies 0 Ectopic pregnancies 0 AB induced 0 Hx Number of Living Children 1 AB spontaneous 0 Past Pregnancies Del. Date GA/Weeks # Preg Succ Route Wgt Sex Labor Lgth Anesth esia Location Prov Complic 08/08/21 39 No Yes vaginal 5 lb 10 oz Female 18 hours, la bor augmentation with [facility], [place] other Delivery Date: 08/08/21 Last Updated by: Leah Lundberg CNM [facility] aug & epidural, pushed 4 hrs, VAVD, baby needed resuscitation, Emergency DHART to [facility] at 2-3 days old: subdural hematoma and bilateral fx clavicle, jaundiced. DS: Data Vitals/I&O Vitals and I&O: Vital Signs Temperature 98.1 F 12/07/24 13:04 Pulse 95 H 12/07/24 08:08 Pulse Rhythm Regular 12/07/24 08:04 Respiratory Rate 16 12/07/24 08:04 Blood Pressure 137/79 12/07/24 08:04 Pulse Oximetry 100 12/07/24 08:08 Oxygen Delivery Method Room Air 12/07/24 08:04 Oxygen Flow Rate 0 12/07/24 08:04 Pain Level 3 12/07/24 13:04 Intake & Output 12/07/24 12/07/24 12/08/24 11:59 23:59 11:59 Output Total 200 / 200 Balance -200 / -200 Weight 144 lb Output: Urine 200 / 200 Other: Urine Color Pale Yellow Data Completed and Pending Labs on day of discharge: Labs from last 24 hours 12/07/24 08:01 WBC Cancelled RBC Cancelled Hgb Cancelled Hct Cancelled MCV Cancelled MCH Cancelled MCHC Cancelled RDW Cancelled Plt Count Cancelled MPV Cancelled ABO/Rh Cancelled Antibody Screen Cancelled
== END 2024-12-07 18:15 | disposition home or self-care (01) ==
LOC: BCD 11:22 → OBS 11:22
PROVIDERS: Admitting Provider Advanced Practice Midwife; PCP Nurse Practitioner Family; Visit Provider Advanced Practice Midwife
DX: O63.0 Prolonged first stage (of labor) (principal); O99.013 Anemia complicating pregnancy, third trimester; Z3A.38 38 weeks gestation of pregnancy; Z14.1 Cystic fibrosis carrier
CPT/HCPCS: 85027; 86850; 86900; 86901; 96372; 59025; G0378; J2270

== ENCOUNTER 2024-12-08 03:52 | Inpatient (IN) | payer MEDICAID, SELFPAY ==
[2024-12-08] VITALS (259 sets, daily range): BP systolic 84–145; BP diastolic 50–93; PULSE 0–193; RESP 16–18; TEMP 36.5–37.3; O2SAT 82–100; BMI 27.2
--- NOTE | 2024-12-08 04:11 | W.PM.OBDISCH ---
Date of service: 12/08/24 Time of Service: 20:00 DS: Diagnosis Discharge Diagnosis (1) Prolonged latent phase of labor: Status: Acute Asessment and Plan: Nuria slept well with Morphine and vistaril and awoke with milder contractions. She returned home to await active labor. Signs of active labor reviewed. Discharge Plan Disposition Patient Disposition: Home Condition: Good Discharge Details Reason For Visit: Rule out labor Admit Date/Time: 12/08/24 03:54 Admit Provider: Leah Lundberg Attending Provider: Leah Lundberg Primary Care Provider: Isabella Holly Home Meds and New Rx's Prescriptions: No Action Gummies 400 mcg-35 mg- 25 mg-5 mg tablet,chewable 1 tab PO DAILY (DME) blood pressure test kit-medium Kit See Rx Instructions .Route Qty: 1 0RF Rx Instructions: Daily BP monitoring during Discharge Instructions Activity:: Activity as Tolerated Equipment/Supplies:: No Equipment Needed Diet:: As Tolerated PFSH All Active Problems (Updated 12/07/24 @ 12:33 by Leah Lundberg CNM) Prolonged latent phase of labor (Acute) Anemia affecting (Acute) Jugular venous engorgement (Acute) Vasospasm (Acute) new onset right sided vasospasm, carotid artery? History of trauma (Acute) Bacterial vaginosis in (Acute) Financial insecurity (Acute) PCB (post coital bleeding) (Acute) Maternal varicella, non-immune (Acute) Rubella non-immune status, antepartum (Acute) (Acute) Medical History Vaginal bleeding in patient at less than 20 weeks gestation Congenital hearing loss of right ear Panic disorder managed with coping skills Anxiety and depression no hx medication use, manages with coping medications Congenital anomaly of ear Acne vulgaris Family History Maternal Grandmother Diabetes Heart disease Mother Depression Social History Smoking/Tobacco Use Status: Unknown Second Hand Exposure: Yes (discussed avoidance, Bill FOB smokes cigarettes) Counseling given: provider counseling Smoking risk assessment performed?: Yes Alcohol Intake: former Counseling given: No Drug use: Never Substance use type: does not use Adopted: No Household members: children Housing: apartment Number of Children: 1 Communication Needs: Hard of Hearing current occupation: patient and FOB work at [employer] Pets and animals: No Sexually active: Yes Do you think of yourself as: straight/heterosexual Current gender identity: male Do you feel safe at home: Yes Do you feel safe in your relationship?: Yes History History 2 Para 1 Hx # Term Pregnancies 1 Multiple births 0 Hx # Pregnancies 0 Ectopic pregnancies 0 AB induced 0 Hx Number of Living Children 1 AB spontaneous 0 Past Pregnancies Del. Date GA/Weeks # Preg Succ Route Wgt Sex Labor Lgth Anesthesia Location Prov Complic 08/08/21 39 No Yes vaginal 5 lb 10 oz Female 18 hours, labor augmentation with pitocin [facility], [place] other Delivery Date: 08/08/21 Last Updated by: Leah Lundberg CNM [facility] aug & epidural, pushed 4 hrs, VAVD, baby needed resuscitation, Emergency DHART to [facility] [place] at 2-3 days old: subdural hematoma and bilateral fx clavicle, jaundiced. DS: Data Data Completed and Pending Labs on day of discharge: Labs from last 24 hours 12/08/24 03:56 WBC Pending RBC Pending Hgb Pending Hct Pending MCV Pending MCH Pending MCHC Pending RDW Pending Plt Count Pending MPV Pending ABO/Rh Pending Antibody Screen Pending
--- NOTE | 2024-12-08 04:16 | HPE_ITS ---
Date of service: 12/08/24 Time of Service: 04:16 Assessment and Plan Assessment and plan (1) Spontaneous onset of labor: Status: Acute Assessment and plan: Admit to Center and routine admission labs. Comfort measures. Notrous oxide provided. Anticipate . Nuria requests epidural analgesia. GBS prophylaxis with vancomycin for penicillin allergy and clindamycin resistance. (2) Group B streptococcal infection during : Status: Acute Assessment and plan: GBS prophylaxis with vancomycin for penicillin allergy and clindamycin resistance. OB-HPI Labor/Delivery History of Present Illness Reason for Visit: Rule out labor Chief Complaint: Uterine Contractions; Maternal Discomfort , Associated Signs and Symptoms of Maternal Discomfort: contractions. [place] Calculator Estimated Delivery Date Method Current WG Current Estimate 12/19/24 LMP (Certain) 38w 3d Other Estimates 12/20/24 Ultrasound #1 38w 2d Comments: Nuria was admitte to observation for therapeutc rest yesterday and was discharged, her contractions became stronger at home and she is admitted now in active labor. Nuria is tearful and expressed concern that she was not in active labor yet. History of Present Expected Delivery Route/Plan - CNM FOB - Bill Perla (1st child together) BG Varicella and rubella non- immune, offer vaccines post Planning epidural, avoid vacuum-assist (prev was negative experience) GBS pos. - discussed with Nuria, will offer prophylaxis is labor. Clindamycin resistant Specific Issues/Plan 1. 5-P's positive. initial UDS negative; 28wk UDS=negative 2. hx traumatic delivery at [facility], VAVD: broken collar bone & subdural hematoma, NICU admit @ [facility] [place], denies shoulder dystocia 2a. pt signed record release, not able to locate in chart 3. 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 [facility] [place] [facility] Vascular consult ordered, scheduled 10/18 4a. [facility] ER for neck spasm, negative neuro/cardiac wk/up, nml neck u/s, hypomagneisum 4b. [facility] [place] [facility] vascular consult: no carotid artery disease, ?enlarged jugular vein, recommended ref to endo and/or cardiology 4c. [facility] [place] [facility] for growth US/consult @ 35 wks: EFW 59th%, JOSI 17, possible dx pulsatile carotid, if maternal echo is nml via cardiology then no indication for delivery @ [facility]-Maternal echo (Done 11/23) normal. 4d. repeat EKG (ordered), monitor BP at home daily, [facility] [place] [facility] cardiology for echo 11/22: Normal. 5. Anemia- 11/29 Hgb 9.1, HCT 29.5- iron infusions ordered. 6. Penicillin allergy - Clindamycin resistant PFSH All Active Problems (Updated 12/08/24 @ 04:20 by Leah Lundberg CNM) Group B streptococcal infection during (Acute) Spontaneous onset of labor (Acute) Anemia affecting (Acute) Jugular venous engorgement (Acute) Vasospasm (Acute) new onset right sided vasospasm, carotid artery? History of trauma (Acute) Bacterial vaginosis in (Acute) Financial insecurity (Acute) PCB (post coital bleeding) (Acute) Maternal varicella, non-immune (Acute) Rubella non-immune status, antepartum (Acute) (Acute) Medical History Vaginal bleeding in patient at less than 20 weeks gestation Congenital hearing loss of right ear Panic disorder managed with coping skills Anxiety and depression no hx medication use, manages with coping medications Congenital anomaly of ear Acne vulgaris Family History Maternal Grandmother Diabetes Heart disease Mother Depression Social History Smoking/Tobacco Use Status: Unknown Second Hand Exposure: Yes (discussed avoidance, Bill FOB smokes cigarettes) Counseling given: provider counseling Smoking risk assessment performed?: Yes Alcohol Intake: former Counseling given: No Drug use: Never Substance use type: does not use Adopted: No Household members: children Housing: apartment Number of Children: 1 Communication Needs: Hard of Hearing current occupation: patient and FOB work at [employer] Pets and animals: No Sexually active: Yes Do you think of yourself as: straight/heterosexual Current gender identity: male Do you feel safe at home: Yes Do you feel safe in your relationship?: Yes History History 2 Para 1 Hx # Term Pregnancies 1 Multiple births 0 Hx # Pregnancies 0 Ectopic pregnancies 0 AB induced 0 Hx Number of Living Children 1 AB spontaneous 0 Past Pregnancies Del. Date GA/Weeks # Preg Succ Route Wgt Sex Labor Lgth Anesth esia Location Prov Complic 08/08/21 39 No Yes vaginal 5 lb 10 oz Female 18 hours, la bor augmentation with pitocin [facility], [place] other Delivery Date: 08/08/21 Last Updated by: Leah Lundberg CNM Pitocin aug & epidural, pushed 4 hrs, VAVD, baby needed resuscitation, Emergency DHART to [facility] [place] at 2-3 days old: subdural hematoma and bilateral fx clavicle, jaundiced. Meds Allergies and Home Medications Allergies Allergy/AdvReac Type Severity Reaction Status Date / Time codeine Allergy Nausea Verified 12/06/24 10:14 Penicillins Allergy Nausea Verified 12/06/24 10:14 Home Medications ?Medication ?Instructions ?Recorded ?Confirmed ?Type PNV 153-FA 400 mcg-om3 35 mg-dha 1 tab PO DAILY 12/06/24 History 25 mg-epa 5 mg-fish oil chew tablet ( Gummies) blood pressure test kit-medium #1 ea 11/15/24 12/06/24 Rx Exam Physical Exam Vital Signs Reviewed: Yes Constitutional Constitutional: no acute distress Detailed Labor and Delivery Exam Dilation: 4 Effacement (%): 90 station: -1 Cervix position: mid Consistency: soft Regalado Score: Cervical Points Exam 0 1 2 3 Dilation Closed 1-2cm 3-4 cm 5-6cm Effacement 0-30% 40-50% 60-70% 80% Consistency Firm Medium Soft Station -3 -2 -1,0 +1,+2 Position Posterior Mid Anterior Amniotic Membrane Status: Intact Monitor Mode: External Contraction Frequency(min): every 3 min Contraction Duration(sec): 60 Contraction Intensity: Moderate/Strong Fetus A Heart Rate Baseline: 160 Monitor Accelerations: 15 X 15 Monitor Decelerations: None Variability: Moderate (6-25 BPM) Presentation: Cephalic Categories: Category I Est. Weight: 6 lb HEENT Exam HEENT Exam: Normal Respiratory Exam Respiratory Exam: Normal Cardiovascular Exam Cardiovascular Exam: Normal Abdominal Exam Abdominal Exam: Normal Exam Exam: Normal Skin Exam Skin Exam: Normal Psychiatric Exam Psychiatric Exam: Normal Risk Assessment Risk for Shoulder Dystocia Historical/Initial OB: NEGATIVE FOR: Pelvic Abnormality, Pre- BMI>30, Previous Shoulder Dystocia or Previous Macrosomia 36 Weeks: NEGATIVE FOR: Current Gestational DM, EFW>4500gms or Maternal Weight Gain>40lbs 40 Weeks: NEGATIVE FOR: EFW> 4500 gms, Maternal Weight Gain >40lb or Post Dates Risk for Pre-Eclampsia Date Initiated/Initials: 06/07 RG Yes, if one or more: NEGATIVE FOR: Hx Pre-E/Gest HTN, Chronic HTN, Multiple Gestation, Pre-gestational DM, Renal Disease, Systemic Lupus or APA Syndrome Yes, if 2 or more: NEGATIVE FOR: Nulliparity, Age>= 35 yrs, >10yr btwn preg nancies, BMI>30, ethinicty, Mother/Sister w/ Pre-E or Previous IUGR Risk for Post- Hemorrhage Initial: NEGATIVE FOR: Multiple Gestation, Previous PPH, Known Clotting Deficiency, Grand Multiparity or Anticoagulation 36 Weeks: NEGATIVE FOR: Anemia, hgb<10, Low platelets(thrombocytopenia), Gestat ional HTN or Pre-E, Polyhydraminios or EFW>4500gms 40 Weeks: NEGATIVE FOR: Anemia, hgb<10, Low platelets (thrombocytopenia), Gestation HTN or Pre-E, Polyhydraminios or EFW>4500gms Risks Reviewed Risks Reviewed Upon Admission: Yes
[2024-12-08 04:28] LABS: HCT 30.1 % (36.0-46.0); HGB 9.2 g/dL (11.2-15.7); MCH 23.6 pg (27.0-33.0); MCHC 30.6 % (32.0-36.0); MCV 77 fL (80-95); MPV 9.8 fL (8.0-11.0); Platelet Count 280 10^3/uL (130-400); RBC 3.90 10^6/uL (3.93-5.22); RDW 15.4 % (11.7-14.6); RDW-SD 42.2 fL; WBC 14.68 10^3/uL (4.4-10.8)
[2024-12-08] MEDS: VANCOMYCIN 2,000 MG in Normal Saline 500 ML 250 MG IVPB (04:52)
--- NOTE | 2024-12-08 04:57 | W.ANESPRE ---
General Info Date of Service Date Performed: 12/08/24 Height: 5 ft 1 in Weight: 65.374 kg Body Mass Index (BMI): 27.2 Surgical Procedure: Labor epidural Meds Allergies and Home Medications Allergies Allergy/AdvReac Type Severity Reaction Status Date / Time codeine Allergy Nausea Verified 12/06/24 10:14 Penicillins Allergy Nausea Verified 12/06/24 10:14 Home Medication ?Medication ?Instructions ?Recorded PNV 153-FA 400 mcg-om3 35 mg-dha 1 tab PO DAILY 05/19/24 25 mg-epa 5 mg-fish oil chew tablet ( Gummies) blood pressure test kit-medium #1 ea 11/15/24 Current Visit Medications: Current Medications Generic Name Dose Route Start Last Admin Trade Name Freq PRN Reason Stop Dose Admin Fentanyl/Ropivacaine 200 ml 12/08/24 04:45 Fentanyl/Ropivacaine 2 Mcg/Ml And 0.1% 200 Ml Cadd [place]ette EP DIRECTED MIKE Vancomycin HCl 2,000 mg/ 500 mls @ 250 mls/hr 12/08/24 04:00 12/08/24 04:52 Sodium Chloride IVPB 250 mls/hr Q8H MIKE Administration Ringer's Solution 500 mls @ 500 mls/hr 12/08/24 04:32 IV 12/08/24 05:31 BOLUS ONE IV Miscellaneous Supplies 1 each 12/08/24 04:00 Iv Access IV DIRECTED MIKE Sodium Chloride 0 ml 12/08/24 08:30 Normal Saline Flush 10 Ml Syr IVP BID MIKE Sodium Chloride 0 ml 12/08/24 08:30 Normal Saline Flush 10 Ml Syr IVP BID MIKE Sodium Chloride 0 ml 12/08/24 03:56 Normal Saline 10 Ml Vial IJ DIRECTED PRN PFSH Active Problems Active Problems: Problem Status Onset Code Group B streptococcal infection during Acute O98.819, B95.1 Spontaneous onset of labor Acute Anemia affecting Acute O99.019 Jugular venous engorgement Acute R09.89 Vasospasm Acute I73.9 History of trauma Acute Z87.68 Bacterial vaginosis in Acute O23.599, B96.89 Financial insecurity Acute Z59.86 PCB (post coital bleeding) Acute N93.0 Maternal varicella, non-immune Acute O09.899, Z28.39 Rubella non-immune status, antepartum Acute O09.899, Z28.39 Acute Z34.90 Medical History Medical History Vaginal bleeding in patient at less than 20 weeks gestation Congenital hearing loss of right ear Panic disorder managed with coping skills Anxiety and depression no hx medication use, manages with coping medications Congenital anomaly of ear Acne vulgaris Tobacco Smoking/Tobacco Use Status: Unknown Second hand exposure: Yes (discussed avoidance, Bill FOB smokes cigarettes) Counseling given: provider counseling Alcohol Alcohol Intake: former Substance Use Substance use: Never Substance use type: does not use Prental History History 2 Para 1 Hx # Term Pregnancies 1 Multiple births 0 Hx # Pregnancies 0 Ectopic pregnancies 0 AB induced 0 Hx Number of Living Children 1 AB spontaneous 0 Past Pregnancies Del. Date GA/Weeks # Preg Succ Route Wgt Sex Labor Lgth Anesthesia Location Prov Complic 08/08/21 39 No Yes vaginal 2551.457 g Female 18 hours, labor augmentation with [facility], [place] other Delivery Date: 08/08/21 Last Updated by: Leah Lundberg CNM [facility] aug & epidural, pushed 4 hrs, VAVD, baby needed resuscitation, Emergency DHART to [facility] at 2-3 days old: subdural hematoma and bilateral fx clavicle, jaundiced. Vital Signs and Lab Results Vital Signs Most Recent Vital Signs in EMR: Most Recent Vital Signs Pulse BP 98 H 118/77 12/08/24 04:48 12/08/24 04:48 Lab Results 12/08/24 04:14 Blood Type / Crossmatch: Antibody Screen NEGATIVE Today Complete Blood Count: WBC, (4.4-10.8) 14.68 10^3/uL H Today, 04:14 RBC, (3.93-5.22) 3.90 10^6/uL L Today, 04:14 Hgb, (11.2-15.7) 9.2 g/dL L Today, 04:14 Hct, (36.0-46.0) 30.1 % L Today, 04:14 Plt Count, (130-400) 280 10^3/uL Today, 04:14 Imaging and Studies Imaging and Studies Study information below may be from another EMR and interpreted by another provider. Please see original notes in EMR for more complete details. EKG Summary: 09/13/24 Conclusion Sinus rhythm...normal P axis, V-rate 60- 99 Carotid Artery Summary:: 09/13/24 Negative for stenosis Anesthesia Assessment and Plan Anesthesia History Personal History: No History of Anesthesia Complications Family History: No Family History of Anesthesia Complications Exercise Tolerance Exercise Tolerance: Metabolic Equivalents>4 Pertinent Negatives Pertinent Negatives: No Major Cardiovascular Symptoms or Complaints and No Major Pulmonary Symptoms or Complaints Cardiac & Pulmonary Exam Cardiac Exam: Normal S1/S2 Heart Sounds Pulmonary Exam: Clear Bilateral Breath Sounds Implantable Cardiac Device Does patient have a Pacemaker or an ICD?: No Airway Exam Known Difficult Airway: No Mallampati Class: 2 Mouth Opening: Normal (> 3cm) Thyromental Distance: Greater than 3 cm Neck Range of Motion: Full ROM Neck Circumference: Normal Teeth Condition: Normal Dentition (nose and lip piercings) ASA Classification ASA Score: ASA 2 Emergency Case?: No NPO Status NPO Status: NPO Clears >2 hours, Solids >8 hours Status Status: Confirmed Anesthesia Plan Resuscitation Status: Full Code Anesthesia Technique: Labor Epidural Airway Planned: Natural Airway Monitors Used: Standard Monitors
[2024-12-08] MEDS: FentaNYL/ROPIvacaine 2 mcg/ml and 0.1% 200 ML CADD Cassette EP (05:36)
[2024-12-08] MEDS: Bupivacaine 0.25% Pres-Free 10 ML VIAL EP (05:39)
[2024-12-08] MEDS: fentaNYL 100 MCG/2 ML VIAL EP (05:39)
--- NOTE | 2024-12-08 05:46 | ANES.NEUR_ITS ---
Epidural/Spinal Catheter Date Performed: 12/08/24 Procedure Start: 05:15 Procedure Stop: 05:40 Requesting Provider: Leah Lundberg Procedure Location: Obstetrics Reason Performed: Labor Epidural Standard Monitors Applied: Blood Pressure, SpO2 and See EMR for corresponding vital signs Patient Position: Sitting Sedation Given (Indicate Dose Given): No Sedation given Patient Mental Status: Awake Sterility: Hand Hygiene, Surgical Cap, Surgical Mask, Sterile Gloves, Sterile Drape/Sheet and Chlorhexidine Procedure Location: L3-L4 Interspace Epidural Needle: Tuohy 18 Gauge Needle Length: 3.5 Inch Needle Approach: Midline Epidural Procedure: Skin Prepped, Sterile Drape Placed, 1% Lidocaine to skin and subcutaneous tissue with 25G needle, Tuohy Needle placed, ARAMIS to Saline Used, Epidural Catheter Placed, Negative Heme, Negative CSF Flow and Tuohy Needle Removed Catheter Placed?: Catheter Placed Test Dose (Indicate Dose Given): 3ml 1.5% Lidocaine with 1:200K Epinephrine Given and Negative Test Dose Loss of Resistance Depth (cm): 7 Catheter depth at skin (cm): 13 Dressing: [place]aview Dressing Placed and Mastisol Used Epidural Provider Bolus (Indicate Dose Given): Total bolus dose given in 3-5 ml divided doses and Total Bupivacaine 0.25% Given (ml) Dose:: 5 ml Additives (Indicate Dose Given ): Fentanyl PF Dose:: 100 mcg Infusion Medication: Medication Infusion Began (@0540) Medication Infusion: Ropivacaine 0.1% with Fentanyl 2mcg/ml Maintenance Infusion Rate (ml/hour): 10 PCEA Bolus Dose (ml): 5 Post Procedure Pain score (0-10): 2 Block Level: N/A Paresthesia: None Ultrasound: Not Used Number of Attempts (See previous attempts in note section): 1 Procedure Tolerated: No Complications and Patient tolerated well Procedure Outcome: Successful Procedure Comment:: Active labor, dilated 4 cm. Had an epidural with previous delivery at [facility] with with vacuum assist. Post procedure, has numbness in right thigh to knee. Had patient reposition to left side. patient states satisfaction with procedure amd its effects. Performed By: Yani Pat
[2024-12-08] MEDS: Lactated Ringers 500 ML IV (06:25)
--- NOTE | 2024-12-08 08:42 | W.PM.OBNL1 ---
Date of service: 12/08/24 Time of Service: 08:42 Pelvic Exam Dilation: 6 Effacement (%): 100 station: -1 Cervix Position: mid Consistency: soft Vaginal Exam Presentation: Cephalic Contractions Monitor Mode: External Contraction Frequency(min): every 2-3 Contraction Duration(sec): 60 Intensity: Strong Fetus A Monitor: External (US) Heart Rate Baseline: 140 Presentation: Cephalic Variability: Moderate (6-25 BPM) Categories: Category I FHR Rhythm: Regular Accelerations: 15 X 15 Decelerations: None Amniotic Membrane Status: Ruptured Rupture Method: Spontaneous Amniotic Fluid: Clear Amount: mod Date of Membrane Rupture: 12/08/24 Time of Membrane Rupture: 07:10 Assessment and Plan Assessment and plan (1) Spontaneous onset of labor: Status: Acute Assessment and plan: rest encouraged. Anticpated . position changes regularly. Objective Abnormal lab results 12/08/24 Range/Units 04:14 WBC 14.68 H (4.4-10.8) 10^3/uL RBC 3.90 L (3.93-5.22) 10^6/uL Hgb 9.2 L (11.2-15.7) g/dL Hct 30.1 L (36.0-46.0) % MCV 77 L (80-95) fL MCH 23.6 L (27.0-33.0) pg MCHC 30.6 L (32.0-36.0) % RDW 15.4 H (11.7-14.6) % Temp Pulse Resp BP Pulse Ox 97.9 F 112 H 16 115/71 99 12/08/24 08:29 12/08/24 08:41 12/08/24 07:32 12/08/24 08:32 12/08/24 08:41 Laboratory Results WBC 14.68 10^3/uL (4.4-10.8) H 12/08/24 04:14 RBC 3.90 10^6/uL (3.93-5.22) L 12/08/24 04:14 Hgb 9.2 g/dL (11.2-15.7) L 12/08/24 04:14 Hct 30.1 % (36.0-46.0) L 12/08/24 04:14 MCV 77 fL (80-95) L 12/08/24 04:14 MCH 23.6 pg (27.0-33.0) L 12/08/24 04:14 MCHC 30.6 % (32.0-36.0) L 12/08/24 04:14 RDW 15.4 % (11.7-14.6) H 12/08/24 04:14 Plt Count 280 10^3/uL (130-400) 12/08/24 04:14 MPV 9.8 fL (8.0-11.0) 12/08/24 04:14 ABO/Rh A Positive 12/08/24 04:14 Antibody Screen NEGATIVE 12/08/24 04:14 Vital Signs Reviewed: Yes Subjective Patient Reports: New Complaints Interval history since last seen: feeling pelvic pressure Results Hemoglobin/Hematocrit: Hgb 9.2 g/dL (11.2-15.7) L 12/08/24 04:14 Hct 30.1 % (36.0-46.0) L 12/08/24 04:14 Abnormal Lab Findings: Abnormal Labs 12/08/24 04:14 WBC 14.68 H RBC 3.90 L Hgb 9.2 L Hct 30.1 L MCV 77 L MCH 23.6 L MCHC 30.6 L RDW 15.4 H
--- NOTE | 2024-12-08 13:34 | PLAC_PTH ---
PATIENT: Nuria Vazquez LOC: OBS U#:[id number] AGE/SX: 24/F ROOM: OBS.301 RE12/08/[address]: Leah Lundberg : 2000 BED: A DIS: 12/09/2024 SPEC #: [id number] RECD: 12/11/24 12:31 STATUS: SAM REQ #: [id number] LESLIE: 12/08/24 13:[address]: Leah Lundberg DEPT: Surgical Specimen RECD BY: Justina Alcazar ENTERED: 12/11/24 12:31 SP TYPE: PLAC OTHR DR: Isabella Holly Tissues: 1 - PLACENTA (3RD TRIMESTER) Procedures: GROSS AND MICRO LEVEL 5 Comments: [id number]
[2024-12-08] MEDS: miSOPROStol 200 MCG TAB 800 MCG PR (13:50)
[2024-12-08] MEDS: Dibucaine 1% 28 GM TUBE TP (15:57)
[2024-12-08] MEDS: Hamamelis Leaf/Glycerin 100 EACH BOX PR (15:58)
[2024-12-08] MEDS: Ibuprofen 600 MG TAB PO (15:58)
[2024-12-08] MEDS: Acetaminophen 325 MG TAB 650 MG PO (15:59)
--- NOTE | 2024-12-08 16:21 | W.ANESPOSTOP ---
Postoperative Evaluation Date, Time and Location Date Performed: 12/08/24 Time Performed: 16:21 Patient Location: Obstetrics Vital Signs Most Recent Imported Vital Signs: Most Recent Vital Signs Temp Pulse Resp BP Pulse Ox 36.8 C 98 H 16 122/55 L 82 L 12/08/24 16:03 12/08/24 15:51 12/08/24 14:34 12/08/24 15:51 12/08/24 15:21 Pain Score Most Recent Pain Score: Most Recent Pain Score Pain Level 3 12/08/24 1615 Assessment Mental Status: Awake (Alert & Oriented to Patient Baseline) Airway and Respiratory Function: Patent airway with normal (patient baseline) respiratory exam Cardiovascular Function: Hemodynamically Stable Hydration Status: Adequately Hydrated Nausea & Vomiting: No Nausea or Vomiting Pain: Pain is tolerable per patient Peripheral Nerve Block: Patient did not receive a nerve block Postoperative Comments:: Pt. not ambulatory yet, still has some residual numbness that we expect to wear off over the next couple of hours. Pt. will notify RN if any concerns.
--- NOTE | 2024-12-08 17:19 | OBVDS_ITS ---
Date of service: 12/08/24 Time of Service: 17:19 OB Labor/ Delivery Information Baby A Delivery Delivery Method: Spontaneaous Presentation: Cephalic Vertex Position: Right Occipital Anterior Cord Description-Baby A: 3 Vessels Amniotic Fluid: Clear Quantitative Blood Loss: 300 Delivery Outcome: Liveborn Infant Transferred: Remains with Mother Note: Nuria experienced discomfort and she was examined and was found to be fully dilated. Her legs were heavy from the epidural and she labored down for approximately an hour in various positions. FHTs 150s during first stage of labor with occasional variable decelerations. FHTs 150s in second stage with repetitive variable decelerations. She was repositioned and an IV bolus was started. Oxygen was administered by mask. When she experienced an urge to push, she was assisted to begin pushing. Second stage huddle was done. She pushed well in various positions and there was a spontaneous delivery of female infant delivered in EDUAR position. The shoulders delivered with gentle downward pressure. The chest and body delivered slowly with gentle traction. Marked caput was noted. Baby was placed on mother's abdomen and dried and stimulated. The baby was noted to have decreased tone and the cord was clamped and cut by immediately and the baby was transferred to the infant warmer. Brief PPV was provided as well as CPAP. Dr Saravia, the car pre cooler was paged immediately to the delivery room to assess the baby. Cord blood gasses were drawn. The placenta delivered spontaneously and appears to by intact with a three vessel cord. Pitocin 30 units IV was administered before delivery of the placenta. The perineum was inspected and a second degree laceration was repaired. There was bright but scant bleeding during the repair and 800 mcg misoprostol was administered MO. The baby was observed on the warmer in the birthing room and the baby was transferred to the nursery for further evaluation. Providers Nurse Diabetes Clinical Manager: Leah Lundberg Nurse: Maddy Kay Nurse: Lesley Burt Other: Yola Robert Labor/Delivery Information Number of Babies in Womb: 1 Steroids Given: None Reason Steroids Not Administered: N/A Group Beta Strep: Positive Antibiotics Administered: Yes Number of Doses of Antibiotics: 1 Rubella Status: Immune Blood Type: A+ Varicella Immunity: Immune Medication in Delivery: IV pit/miso Born En Route: No Shoulder Dystocia: No Stages of Labor Onset of Labor Date: 12/05/24 Onset of Labor Time: 10:30 Complete Dilatation Date: 12/08/24 ROM Baby A: 12/08/24 ROM Baby A: 07:10 Delivery Date-Baby A: 12/08/24 Infant Delivery Time-Baby A: 13:29 Placenta Delivery Date-Baby A: 12/08/24 Placenta Delivery Time-Baby A: 13:34 Labor-Stage 3 Duration: 5 minutes Total Length of Labor-Baby A: 74 hours and 59 minutes Placenta Status: Delivered Baby A Gender: Female Gestational Status: Early Term (37-38.6 wks) Gestational Age in Weeks/Days: 38 Weeks and 3 Days Score-1 Minute Interval(Baby A) Heart Rate-1 minute: 100 BPM or Greater Respiratory Effort- 1 minute: No Spontaneous Effort Muscle Tone-1 minute: Limp Reflex Response-1 minute: Minimal Response Color-1 minute: Pallor or Cyanosis Total Score-1 minute: 3 Score-5 Minute Interval(Baby A) Heart Rate- 5 minute: 100 BPM or Greater Respiratory Effort-5 minute: Slow Respiration/Weak Cry Muscle Tone-5 minute: Minimal Flexion/Extension Reflex Response-5 minute: Minimal Response Color-5 minute: Bluish Hands or Feet Total Score- 5 minute: 6 Interventions Repair of Laceration Type: Perineal, Laceration Extension: Second Degree. Sponge Count Correct: Yes, Sharp Count Correct: Yes.
[2024-12-08] MEDS: Oxytocin/Normal Saline 30 UNIT/500 ML BAG 334 UNITS IV (17:34)
--- NOTE | 2024-12-08 17:47 | PGE_ITS ---
Date of Service Date of service: 12/08/24 Time of Service: 17:48 Assessment and Plan Assessment and plan (1) Term of female : Status: Acute Assessment and plan: Stable mother and baby in the post period. Routine post care, (2) Anemia affecting : Status: Acute Assessment and plan: methergine PO 0.2 mg ordered and continued assessment of bleeding. Subjective Subjective Patient reports: tolerating a regular diet and voiding w/o difficulty Interval history since last seen: Nuria is resting comfortably. She is bottle feeding her baby who is stable and returned to her room to be cared for by mother and father. She got up to void and voided 300 cc. Uterus is firm and at U. She had a small gush of blood with fundal massage. Objective Last Vital Signs Temp 98.2 F 12/08/24 16:03 Pulse 87 12/08/24 17:02 Resp 16 12/08/24 14:34 BP 115/69 12/08/24 17:02 Pulse Ox 98 12/08/24 17:02 Laboratory Results - last 24 hr 12/08/24 04:14 WBC 14.68 H RBC 3.90 L Hgb 9.2 L Hct 30.1 L MCV 77 L MCH 23.6 L MCHC 30.6 L RDW 15.4 H Plt Count 280 MPV 9.8 ABO/Rh A Positive Antibody Screen NEGATIVE Reviewed Pertinent PMH: Yes Time Spent with Patient Time Spent with Patient: <25 minutes Time was spent: preparing to see the patient(eg.review tests), obtaining and/or reviewing separately otained hiistory, ordering medications,tests, procedures, referring, communicating with other health ocular care technician (Dr Antoine notified of patient's status), indepentently interpreting results, counseling the patient and care coordination
[2024-12-08] MEDS: Methylergonovine 0.2 MG TAB PO (18:03)
[2024-12-08] MEDS: Normal Saline 10 ML VIAL IJ (18:03)
[2024-12-09] MEDS: Ibuprofen 600 MG TAB PO ×3 (00:32→12:53)
[2024-12-09] MEDS: Acetaminophen 325 MG TAB 650 MG PO ×3 (00:32→10:06)
[2024-12-09] MEDS: Methylergonovine 0.2 MG TAB PO ×2 (00:32→06:33)
[2024-12-09 00:33] VITALS: BP 122/73; PULSE 109; RESP 17; TEMP 36.8; O2SAT 99
[2024-12-09 06:59] LABS: HCT 30.2 % (36.0-46.0); HGB 8.9 g/dL (11.2-15.7); MCH 22.9 pg (27.0-33.0); MCHC 29.5 % (32.0-36.0); MCV 78 fL (80-95); MPV 10.1 fL (8.0-11.0); Platelet Count 251 10^3/uL (130-400); RBC 3.88 10^6/uL (3.93-5.22); RDW 16.1 % (11.7-14.6); RDW-SD 41.8 fL; WBC 18.39 10^3/uL (4.4-10.8)
--- NOTE | 2024-12-09 08:11 | OBPPV_ITS ---
Date of service: 12/09/24 Time of Service: 08:11 Assessment and Plan Assessment and plan (1) Term of female : Status: Acute Assessment and plan: A: PPD#1, nml recovery, pt very pleased with her experience Pt feels her family is complete Formula feeding as planned anemia noted with hgb today @ 8.9 P: Offer MMR and Varicella vaccines prior to discharge Pt requests discharge today if baby is released Interested in combined OC's for BCM Give 300 mg iron sucrose IV today with plan to check hgb at 2 wk f/up appt Written instructins reviewed adn given to pt (2) Anemia affecting : Status: Acute Assessment and plan: Denies dizziness, normotensive, pulse ranging 95 - 110 Give 300 mg iron sucrose IV today with plan to check hgb at 2 wk f/up appt Subjective Subjective Patient comments: No complaints, Tolerating diet and Flatus present Patient's Mood: happy, pleased [place] baby status: Doing well, Bottle feeding well and Strong Bonding Observed feeding status: Exclusively formula feeding Exam Physical Exam Vital signs: Temp Pulse Resp BP Pulse Ox 98.2 F 109 H 17 122/73 99 12/09/24 00:33 12/09/24 00:33 12/09/24 00:33 12/09/24 00:33 12/09/24 00:33 Vital Signs Reviewed: Yes Constitutional Constitutional: no acute distress and cooperative HEENT Exam HEENT Exam: Normal Neck Exam Neck Exam: Normal Breast Exam Bilateral: Breast Exam: Normal and Soft Nipple Exam: Normal and Uninjured Respiratory Exam Respiratory Exam: Normal Cardiovascular Exam Cardiovascular Exam: Normal Abdominal Exam Abdomen: Other (soft, nontender) Fundal Exam Fundus: Below Umbilicus and Firm Rectal Exam Rectal Exam: Normal Exam Perineum: Repair Intact Extremities Exam Extremity Exam: Normal and Warm to Touch Back/Spine/Pelvis Exam Back Exam: Normal Skin Exam Skin Exam: Normal Neurological Exam Neurological Exam: Normal Psychiatric Exam Psychiatric Exam: Normal Results Hemoglobin/Hematocrit: Hgb 8.9 g/dL (11.2-15.7) L 12/09/24 06:00 Hct 30.2 % (36.0-46.0) L 12/09/24 06:00 Abnormal Lab Findings: Abnormal Labs 12/08/24 12/09/24 04:14 06:00 WBC 14.68 H 18.39 H RBC 3.90 L 3.88 L Hgb 9.2 L 8.9 L Hct 30.1 L 30.2 L MCV 77 L 78 L MCH 23.6 L 22.9 L MCHC 30.6 L 29.5 L RDW 15.4 H 16.1 H
[2024-12-09 09:18] VITALS: BP 110/74; PULSE 101; RESP 16; TEMP 36.4
[2024-12-09] MEDS: IRON SUCROSE COMPLEX 300 MG in Normal Saline 250 ML 167 MG IVPB (09:36)
[2024-12-09 10:03] VITALS: BP 104/71; PULSE 74; RESP 16; TEMP 36.6
[2024-12-09 10:06] VITALS: TEMP 36.6
--- NOTE | 2024-12-09 11:17 | DSE_ITS ---
Date of service: 12/09/24 Time of Service: 11:18 DS: Diagnosis Discharge Diagnosis (1) Term of female : Status: Acute (2) Anemia affecting : Status: Acute Discharge Plan Disposition Patient Disposition: Home Condition: Good Discharge Details Reason For Visit: Rule out labor Admit Date/Time: 12/08/24 03:54 Admit Provider: Leah Lundberg Attending Provider: Leah Lundberg Primary Care Provider: Isabella Holly Hospital Course Hospital Course: under epidural anesthesia, 2nd degree laceration repaired, nml recovery, planned formula feeding, desires discharge on day #1, will receive iron infusion prior to discharge and will be offered MMR and Varicella vaccines. Home Meds and New Rx's Prescriptions: No Action Gummies 400 mcg-35 mg- 25 mg-5 mg tablet,chewable 1 tab PO DAILY (DME) blood pressure test kit-medium Kit See Rx Instructions .Route Qty: 1 0RF Rx Instructions: Daily BP monitoring during Discharge Instructions Additional Instructions: Please keep your 2 and 6 week appointments with the midwives, call for any and all concerns Stand Alone Forms: BC Instructions, BC Post Vaginal Deliver Activity:: Activity as Tolerated Equipment/Supplies:: No Equipment Needed Diet:: Normal Diet OB:DS Summary Summary Vaginal Delivery Method: Spontaneaous Episiotomy Description: None Laceration Description: Perineal Laceration Extension: Second Degree Contraception Discussed Contraception Discussed: Yes Contraceptive Plan: Control Pill/Patch, [place] Infant Gender-Baby A: Female weight: 7 lb 4.933 oz Status at Discharge Functional status at discharge: independent ambulation Overall status at discharge: patient is progressing back to baseline Mental Status: mental status grossly normal Speech and Movement: speech and movement normal and speech clear Mood: congruent mood Affect: normal affect Exam Physical Exam Vital signs: Temp Pulse Resp BP Pulse Ox 97.9 F 74 16 104/71 99 12/09/24 10:06 12/09/24 10:03 12/09/24 10:03 12/09/24 10:03 12/09/24 00:33 Constitutional Constitutional: no acute distress and cooperative HEENT Exam HEENT Exam: Normal Neck Exam Neck Exam: Normal Breast Exam Bilateral: Breast Exam: Normal and Soft Respiratory Exam Respiratory Exam: Normal Cardiovascular Exam Cardiovascular Exam: Normal Abdominal Exam Abdomen: Other (soft, nontender) Fundal Exam Fundus: Below Umbilicus and Firm Rectal Exam Rectal Exam: Normal Exam Perineum: Repair Intact Extremities Exam Extremity Exam: Normal and Warm to Touch Back/Spine/Pelvis Exam Back Exam: Normal Skin Exam Skin Exam: Normal Neurological Exam Neurological Exam: Normal Psychiatric Exam Psychiatric Exam: Normal PFSH All Active Problems (Updated 12/09/24 @ 08:32 by Taniya Saucedo) Term of female (Acute) Anemia affecting (Acute) History of trauma (Acute) Financial insecurity (Acute) PCB (post coital bleeding) (Acute) Maternal varicella, non-immune (Acute) Rubella non-immune status, antepartum (Acute) Medical History (Updated 12/09/24 @ 08:32 by Taniya Saucedo) Vasospasm new onset right sided vasospasm, carotid artery? Jugular venous engorgement Bacterial vaginosis in Family history of congenital anomalies mother with absence of one kidney Vaginal bleeding in patient at less than 20 weeks gestation Congenital hearing loss of right ear Panic disorder managed with coping skills Anxiety and depression no hx medication use, manages with coping medications Congenital anomaly of ear Acne vulgaris Family History (Updated 12/08/24 @ 05:10 by Leah Lundberg CNM) Maternal Grandmother Diabetes Heart disease Rheumatoid arthritis Mother Depression Fibromyalgia Congenital absence of one kidney Social History Smoking/Tobacco Use Status: Unknown Second Hand Exposure: Yes (discussed avoidance, Bill FOB smokes cigarettes) Counseling given: provider counseling Smoking risk assessment performed?: Yes Alcohol Intake: former Counseling given: No Drug use: Never Substance use type: does not use Adopted: No Household members: children Housing: apartment Number of Children: 1 Communication Needs: Hard of Hearing current occupation: patient and FOB work at [employer] Pets and animals: No Sexually active: Yes Do you think of yourself as: straight/heterosexual Current gender identity: male Do you feel safe at home: Yes Do you feel safe in your relationship?: Yes History History 2 Para 1 Hx # Term Pregnancies 1 Multiple births 0 Hx # Pregnancies 0 Ectopic pregnancies 0 AB induced 0 Hx Number of Living Children 1 AB spontaneous 0 Past Pregnancies Del. Date GA/Weeks # Preg Succ Route Wgt Sex Labor Lgth Anesth esia Location Prov Complic 08/08/21 39 No Yes vaginal 5 lb 10 oz Female 18 hours, la bor augmentation with pitocin [facility], [place] other Delivery Date: 08/08/21 Last Updated [facility]: [facility], VAVD, baby needed resuscitation, [place] [facility] 2-3 [facility] [place]: subdural hematoma and bilateral fx clavicle, jaundiced. DS: Data Vitals/I&O Vitals and I&O: Vital Signs Temperature 97.9 F 12/09/24 10:06 Temperature Source Oral 12/09/24 10:03 Pulse 74 12/09/24 10:03 Pulse Rhythm Regular 12/08/24 20:44 Respiratory Rate 16 12/09/24 10:03 Respiratory Depth Normal 12/08/24 20:44 Blood Pressure 104/71 12/09/24 10:03 Blood Pressure Mean 82 12/09/24 10:03 Pulse Oximetry 99 12/09/24 00:33 Oxygen Delivery Method Room Air 12/08/24 04:35 Oxygen Flow Rate 0 12/08/24 04:35 Pain Level 1 12/09/24 10:06 Comment 15 min s/p iv infusion / no symptoms noted 12/09/24 10:03 Intake & Output 12/08/24 12/08/24 12/09/24 11:59 23:59 11:59 Intake Total 10 / 510 500 / 510 Output Total 450 / 1240 790 / 1240 Balance -440 / -730 -290 / -730 Weight 144 lb 2 oz Intake: IV 10 / 510 500 / 510 Output: Urine 450 / 1150 700 / 1150 Blood 90 / 90 Other: Urine Color Yellow Yellow Urine Appearance Clear Comment straight cath Data Completed and Pending Labs on day of discharge: Labs from last 24 hours 12/09/24 06:00 WBC 18.39 H RBC 3.88 L Hgb 8.9 L Hct 30.2 L MCV 78 L MCH 22.9 L MCHC 29.5 L RDW 16.1 H Plt Count 251 MPV 10.1
[2024-12-09 14:00] VITALS: BP 110/66; PULSE 80; RESP 18; TEMP 36.7
[2024-12-09] MEDS: Dibucaine 1% 28 GM TUBE TP (14:48)
[2024-12-09] MEDS: Hamamelis Leaf/Glycerin 100 EACH BOX PR (14:48)
== END 2024-12-09 15:05 | disposition home or self-care (01) | DRG 807 ==
PROVIDERS: Admitting Provider Advanced Practice Midwife; PCP Nurse Practitioner Family; Visit Provider Advanced Practice Midwife
DX: O99.824 Streptococcus B carrier state complicating childbirth (principal); Z37.0 Single live birth; Z3A.38 38 weeks gestation of pregnancy; O99.02 Anemia complicating childbirth; O70.1 Second degree perineal laceration during delivery; O99.344 Other mental disorders complicating childbirth; F41.8 Other specified anxiety disorders; Z14.1 Cystic fibrosis carrier; I73.89 Other specified peripheral vascular diseases; O99.42 Diseases of the circulatory system complicating childbirth
CPT/HCPCS: 36415; 85027; 86850; 86900; 86901; 88307; J0665; J1756; J3010; J3373